=== PATIENT | female | born 1975 | race Caucasian/White ===

== ENCOUNTER 2020-02-14 12:58 | Inpatient (IN) ==
[2020-02-14] MEDS ORDERED: IOPAMIDOL 100 ML BOTTLE IV ONE (12:59)
[2020-02-14] MEDS ORDERED: 0.9 % SODIUM CHLORIDE 2,000 ML IV ONE (13:01)
[2020-02-14] MEDS ORDERED: PROCHLORPERAZINE 10 MG/2 ML VIAL IV ONE (13:01)
[2020-02-14] MEDS ORDERED: PANTOPRAZOLE 40 MG VIAL IV ONE ×3 (13:01→17:40)
[2020-02-14] MEDS ORDERED: PHENobarb/HYOSCY/ATROPINE/SCOP 1 DOSE BOTTLE PO ONE (13:26)
[2020-02-14 13:35] LABS: Basophils # (Auto) 0.07 K/mcL (0.00-0.20); Basophils % (Auto) 0.7 % (0.0-2.0); Eosinophils # (Auto) 0.01 K/mcL (0.00-0.70); Eosinophils % (Auto) 0.1 % (0.0-7.0); Hematocrit 46.6 % (36.0-48.0); Hemoglobin 16.1 g/dL (12.0-15.0); Lymphocytes # (Auto) 1.95 K/mcL (1.50-4.80); Lymphocytes % (Auto) 18.1 % (15.0-49.0); Mean Cell Volume 91.6 fL (80.0-100.0); Mean Corpuscular HGB Conc 34.5 g/dL (31.0-36.0); Mean Platelet Volume 9.1 fL (7.4-10.4); Monocytes # (Auto) 0.88 K/mcL (0.10-0.90); Monocytes % (Auto) 8.2 % (1.0-12.0); Neutrophils % (Auto) 72.9 % (38.0-78.0); Platelet Count 267 K/mcL (140-440); RBC 5.09 M/mcL (4.00-5.20); Red Cell Distribution Width 12.2 % (11.5-14.5); WBC 10.8 K/mcL (4.5-11.0)
[2020-02-14 14:01] LABS: ALT/SGPT 17 U/L (<40); AST/SGOT 19 U/L (<32); Albumin 4.4 gm/dL (3.2-5.2); Albumin/Globulin Ratio 1.4 (1.0-2.3); Alkaline Phosphatase 103 U/L (39-117); Bilirubin,Total 0.6 mg/dL (0.1-1.0); Blood Urea Nitrogen 11 mg/dL (6-20); Calcium 9.3 mg/dL (8.6-10.4); Carbon Dioxide 21 mmol/L (22-30); Chloride 97 mmol/L (96-108); Globulin 3.2 gm/dL (2.2-3.7); Glomerular Filtration Rate 104; Glucose 320 mg/dL (70-105)
--- NOTE | 2020-02-14 14:02 | Emergency Department Note ---
Abdominal Pain HPI General Chief Complaint: Abdominal Pain Stated Complaint: N/v abd pain Time Seen by Provider: 02/14/20 13:01 Source: patient Mode of arrival: ambulatory Limitations: no limitations History of Present Illness HPI Narrative: Narrative: 44-year-old female comes back today for epigastric pain with nausea and vomiting. Denies diarrhea fever shortness of breath. Notes general malaise. Has not been able to hold fluids down. I saw her 2 days ago for the same thing and she was discharged home with medicine to calm her stomach down and antinausea medicine. She states she is not any better. Fingerstick blood sugar here is 311 Related Data Home Medications Medication Instructions Recorded Confirmed venlafaxine [Effexor XR] 150 mg PO QDAY 09/02/19 02/14/20 quetiapine 50 mg tablet 50 mg PO HS 09/30/19 12/31/19 probiotics PO 10/08/19 12/31/19 aspirin 81 mg chewable tablet See Rx Instructions PO .COMPLEX 11/06/19 12/31/19 [id number] See Rx Instructions PO .COMPLEX 11/06/19 12/31/19 50 mg-325 mg-40 mg capsule cholecalciferol (vitamin D3) 25 See Rx Instructions PO .COMPLEX 11/06/19 mcg (1,000 unit) tablet fenofibrate micronized 200 mg See Rx Instructions PO .COMPLEX 11/06/19 12/31/19 capsule ferrous gluconate PO 11/06/19 12/31/19 guar gum PO 11/06/19 12/31/19 ibuprofen 600 mg tablet See Rx Instructions PO .COMPLEX 11/06/19 12/31/19 metoprolol succinate 25 mg See Rx Instructions PO .COMPLEX 11/06/19 12/31/19 tablet,extended release 24 hr polyethylene glycol 3350 17 See Rx Instructions PO .COMPLEX 11/06/19 12/31/19 gram/dose oral powder metformin 500 mg PO BID 02/14/20 02/14/20 omeprazole 20 mg PO QDAY 02/14/20 02/14/20 Previous Rx's Medication Instructions Recorded pioglitazone 15 mg tablet 30 mg PO QDAY 30 Days #60 tab 12/31/19 digoxin 250 mcg (0.25 mg) tablet 250 mcg PO QDAY #30 tab 01/24/20 ondansetron 4 mg PO Q6H PRN #10 tab 02/13/20 Allergies Allergy/AdvReac Type Severity Reaction Status Date / Time morphine AdvReac Nausea Verified 02/14/20 12:59 Review of Systems ROS ROS Narrative: Narrative: All systems ED: reviewed and negative except as stated. PFSH Narrative Patient History Narrative: Narrative: Medical/Surgical/Family History All Active Problems (Updated 02/14/20 @ 14:59 by Joseluis Julio MD) Gastritis (Acute) DKA (diabetic ketoacidoses) (Acute) History of removal of cyst (Chronic) History of arthroscopy of knee (Chronic) Delusions (Chronic) Hallucinations (Chronic) Heartburn (Chronic) Hypertension (Chronic) Learning disability (Chronic) Acute viral syndrome (Chronic) Anxiety (Chronic) Nausea & vomiting (Chronic) Dehydration (Chronic) Hemorrhoid (Chronic) Hyperlipidemia (Chronic) Diarrhea (Chronic) Acute dehydration (Chronic) Tachycardia (Chronic) History of hysterectomy (Chronic 07/26/16) History of cholecystectomy (Chronic) Heart trouble (Chronic) Type 2 diabetes mellitus (Chronic) Depression (Chronic) Arthritis (Chronic) Acid reflux (Chronic) Hyperglycemia due to type 2 diabetes mellitus (Chronic) Headache (Chronic) Fatigue (Chronic) Left thyroid nodule (Chronic) History of tachycardia (Chronic) Influenza A (Chronic) Gastroenteritis (Chronic) UTI (urinary tract infection) (Chronic) Bladder infection (Chronic) Tachycardia (Chronic) Chronic insomnia (Chronic) Diabetes mellitus type 2, uncontrolled, without complications (Chronic) Medical History (Updated 02/14/20 @ 14:59 by Joseluis Julio MD) Acid reflux (Chronic) Arthritis (Chronic) Chronic insomnia (Chronic) Dehydration (Resolved) Delusions (Chronic) Depression (Chronic) Mental Health x1 @ [facility] 1999 Diabetes mellitus type 2, uncontrolled, without complications (Chronic) Diarrhea (Chronic) Gastroenteritis (Resolved) Hallucinations (Chronic) Heart trouble (Chronic) Heartburn (Chronic) Hemorrhoid (Chronic) Hyperlipidemia (Chronic) Hypertension (Chronic) Learning disability (Chronic) PID (acute pelvic inflammatory disease) (Resolved) Tachycardia (Chronic) Type 2 diabetes mellitus (Chronic) UTI (urinary tract infection) (Resolved) Surgical History History of arthroscopy of knee (Chronic) Right History of cholecystectomy (Chronic) History of hysterectomy (Chronic 07/26/16) History of removal of cyst (Chronic) Cyst removed off of right breast Family History Other Alcoholism Social History Smoking Status: Former smoker Alcohol Intake Frequency: does not drink Substance Use: marijuana Exam Narrative Narrative: Dramatic. She is able to sit up from my exam without difficulty or assistance. She is dry heaving in the hallway but here in the room she is not. Normocephalic atraumatic. Conjunctive are clear sclerae white nonicteric. No nasal discharge or congestion. Oropharynx pink and moist. Neck is supple wit hout lymphadenopathy or thyromegaly. Heart is regular rate and rhythm no murmur appreciated. Lungs are clear to auscultation bilaterally without wheezes rales rhonchi or respiratory distress. Abdomen is soft tender in the epigastrium down to the umbilical area. I do not see any CVA tenderness peritoneal signs or guarding. No pedal edema. She is alert oriented able answer questions appropriately General Limitations: no limitations Course Vital Signs Vital signs: Vital Signs Temperature 98.8 F 02/14/20 12:59 Pulse Rate 106 H 02/14/20 12:59 Respiratory Rate 20 02/14/20 12:59 Blood Pressure 165/101 02/14/20 12:59 Pulse Oximetry (%) 98 02/14/20 12:59 Temperature 98.8 F 02/14/20 12:59 Pulse Rate 115 H 02/14/20 15:27 Respiratory Rate 20 02/14/20 12:59 Blood Pressure 146/84 02/14/20 15:27 Pulse Oximetry (%) 100 02/14/20 15:27 [facility] MDM Narrative Medical decision making narrative: Narrative: Concern for worsening gastritis. Ordered laboratory CT scan of the abdomen pelvis and start IV fluids. We will give her some Compazine for the nausea and GI cocktail along with Protonix. She is a diabetic concern for also DKA or worsening status there so further laboratory is ordered. We will see what her blood sugar looks like after rehydration as it is only 311 now We attempted to get the CT scan done but she was too anxious and could not be accomplished-ordered Ativan. CT was done Her anion gap is elevated as was her blood sugar and beta hydroxybutyrate. This looks like mild DKA so we will give her 5 units of insulin. Blood gases ordered I talked with her about coming in the hospital for treatment of her diabetes-she notes that she has not been able to hold any food down for about 3 days now. She is very anxious. I discussed the situation with Dr. Zamorano, our hospitalist. He agreed to admit the patient for further care and evaluation the hospital but recommended that we talk to surgery regarding possible consultation for upper endoscopy for this gastritis. It is noted the patient's vital signs are reasonable, we do not have evidence of coffee-ground emesis and her BUN is normal-that is a significant GI bleed is unlikely. So at that point I discussed the situation with Dr. Cardenas, our general surgeon. He agreed to consult on the patient ABG shows tachypnea with mild respiratory alkalosis compensating for likely metabolic acidosis from DKA-pH is compensated at 7.42 Lab Data Result diagrams: 02/14/20 13:09 02/14/20 13:09 Labs: Lab Results 02/14/20 02/14/20 02/14/20 Range/Units 13:08 13:09 13:09 WBC 10.8 (4.5-11.0) K/mcL RBC 5.09 (4.00-5.20) M/mcL Hgb 16.1 H (12.0-15.0) g/dL Hct 46.6 (36.0-48.0) % MCV 91.6 (80.0-100.0) fL MCH 31.6 (26.0-34.0) pg MCHC 34.5 (31.0-36.0) g/dL RDW 12.2 (11.5-14.5) % Plt Count 267 (140-440) K/mcL MPV 9.1 (7.4-10.4) fL Neut % (Auto) 72.9 (38.0-78.0) % Lymph % (Auto) 18.1 (15.0-49.0) % [place] % (Auto) 8.2 (1.0-12.0) % Eos % (Auto) 0.1 (0.0-7.0) % Baso % (Auto) 0.7 (0.0-2.0) % Lymph # (Auto) 1.95 (1.50-4.80) K/mcL [place] # (Auto) 0.88 (0.10-0.90) K/mcL Eos # (Auto) 0.01 (0.00-0.70) K/mcL Baso # (Auto) 0.07 (0.00-0.20) K/mcL Absolute Neutrophils 7.85 (1.80-8.00) K/mcL VBG Lactic Acid (0.5-2.0) mmol/L Sodium 140 (133-145) mmol/L Potassium 3.6 (3.3-5.1) mmol/L Chloride 97 (96-108) mmol/L Carbon Dioxide 21 L (22-30) mmol/L Anion Gap 22.0 H (8.0-16.0) BUN 11 (6-20) mg/dL Creatinine 0.7 (0.6-1.1) mg/dL GFR Calculation 104 Glucose 320 H (70-105) mg/dL Calcium 9.3 (8.6-10.4) mg/dL Total Bilirubin 0.6 (0.1-1.0) mg/dL AST 19 (<32) U/L ALT 17 (<40) U/L Alkaline Phosphatase 103 (39-117) U/L C-Reactive Protein 0.50 (0.03-0.80) mg/dL Total Protein 7.6 (5.9-8.4) gm/dL Albumin 4.4 (3.2-5.2) gm/dL Globulin 3.2 (2.2-3.7) gm/dL Albumin/Globulin Ratio 1.4 (1.0-2.3) Lipase 21 (7-60) U/L Beta-Hydroxybutyrate 3.90 H (<0.27) mmol/L Urine Color Urine Appearance (Clear) Urine pH (5.0-9.0) Ur Specific [place] (1.000-1.035) Urine Protein (Negative) mg/dL Urine Glucose (UA) (Negative) mg/dL Urine Ketones (Negative) mg/dL Urine Occult Blood (Negative) mg/dL Urine Nitrate (Negative) Urine Bilirubin (Negative) mg/dL Urine Urobilinogen mg/dL Ur Leukocyte Esterase (Negative) /ug Urine RBC (0-3) /hpf Urine WBC (0-4) /hpf Ur Squamous Epith Cells (0-4) /hpf Urine Bacteria (0) /hpf Other Casts (None) /lph Urine Mucus (None) /hpf Ur Culture Indicated? 02/14/20 02/14/20 Range/Units 13:09 13:42 WBC (4.5-11.0) K/mcL RBC (4.00-5.20) M/mcL Hgb (12.0-15.0) g/dL Hct (36.0-48.0) % MCV (80.0-100.0) fL MCH (26.0-34.0) pg MCHC (31.0-36.0) g/dL RDW (11.5-14.5) % Plt Count (140-440) K/mcL MPV (7.4-10.4) fL Neut % (Auto) (38.0-78.0) % Lymph % (Auto) (15.0-49.0) % Love % (Auto) (1.0-12.0) % Eos % (Auto) (0.0-7.0) % Baso % (Auto) (0.0-2.0) % Lymph # (Auto) (1.50-4.80) K/mcL [place] # (Auto) (0.10-0.90) K/mcL Eos # (Auto) (0.00-0.70) K/mcL Baso # (Auto) (0.00-0.20) K/mcL Absolute Neutrophils (1.80-8.00) K/mcL VBG Lactic Acid 1.5 (0.5-2.0) mmol/L Sodium (133-145) mmol/L Potassium (3.3-5.1) mmol/L Chloride (96-108) mmol/L Carbon Dioxide (22-30) mmol/L Anion Gap (8.0-16.0) BUN (6-20) mg/dL Creatinine (0.6-1.1) mg/dL GFR Calculation Glucose (70-105) mg/dL Calcium (8.6-10.4) mg/dL Total Bilirubin (0.1-1.0) mg/dL AST (<32) U/L ALT (<40) U/L Alkaline Phosphatase (39-117) U/L C-Reactive Protein (0.03-0.80) mg/dL Total Protein (5.9-8.4) gm/dL Albumin (3.2-5.2) gm/dL Globulin (2.2-3.7) gm/dL Albumin/Globulin Ratio (1.0-2.3) Lipase (7-60) U/L Beta-Hydroxybutyrate (<0.27) mmol/L Urine Color Yellow Urine Appearance Clear (Clear) Urine pH 6.0 (5.0-9.0) Ur Specific [place] 1.036 H (1.000-1.035) Urine Protein >=500 A (Negative) mg/dL Urine Glucose (UA) >=500 A (Negative) mg/dL Urine Ketones 80 A (Negative) mg/dL Urine Occult Blood Negative (Negative) mg/dL Urine Nitrate Negative (Negative) Urine Bilirubin Negative (Negative) mg/dL Urine Urobilinogen Negative mg/dL Ur Leukocyte Esterase Negative (Negative) /ug Urine RBC 1 (0-3) /hpf Urine WBC 4 (0-4) /hpf Ur Squamous Epith Cells 5 H (0-4) /hpf Urine Bacteria Few A (0) /hpf Other Casts Few A (None) /lph Urine Mucus Mod A (None) /hpf Ur Culture Indicated? No Discharge Plan Patient/Caregiver Discharge Instructions Pt seen by PUBLIC RELATIONS COUNSELOR/PA only: No Clinical Impression: Gastritis Qualifiers: Gastritis type: unspecified gastritis Chronicity: acute Gastritis bleeding: presence of bleeding unspecified Qualified Code(s): K29.00 - Acute gastritis without bleeding DKA (diabetic ketoacidoses) Qualifiers: Diabetes mellitus type: type 2 Diabetes mellitus complication detail: without coma Qualified Code(s): E11.10 - Type 2 diabetes mellitus with ketoacidosis without coma Patient Disposition: Xfer As Inpt ([facility]) Condition: Fair Follow up with: Juan F Pinon MD [Primary Care Provider] - Prescriptions: No Action digoxin 250 mcg (0.25 mg) tablet 250 mcg PO QDAY Qty: 30 RF: 2 probiotics PO RF: 0 quetiapine 50 mg tablet 50 mg PO HS RF: 0 [id number]-[id number]-hmlr [Zebutal] 50-325-40 mg capsule See Rx Instructions PO .COMPLEX RF: 0 cholecalciferol (vitamin D3) 25 mcg (1,000 unit) tablet See Rx Instructions PO .COMPLEX RF: 0 fenofibrate micronized 200 mg capsule See Rx Instructions PO .COMPLEX RF: 0 polyethylene glycol 3350 [Miralax] 17 gram/dose powder See Rx Instructions PO .COMPLEX RF: 0 metoprolol succinate 25 mg tablet extended release 24 hr 25 mg PO BID RF: 0 ibuprofen 600 mg tablet See Rx Instructions PO .COMPLEX RF: 0 ferrous gluconate PO RF: 0 guar gum PO RF: 0 aspirin 81 mg tablet,chewable See Rx Instructions PO .COMPLEX RF: 0 pioglitazone 15 mg tablet 30 mg PO QDAY 30 Days Qty: 60 RF: 2 venlafaxine [Effexor XR] 75 mg Capsule,Extended Release 24hr 150 mg PO QDAY RF: 0 ondansetron 4 mg tablet,disintegrating 4 mg PO Q6H PRN (Reason: nausea and vomiting) Qty: 10 RF: 0 metformin 500 mg tablet extended release 24 hr 500 mg PO BID RF: 0 omeprazole 40 mg capsule,delayed release(DR/EC) 20 mg PO QDAY RF: 0
[2020-02-14] MEDS ORDERED: LORazepam 2 MG/ML VIAL IV ONE (14:15)
[2020-02-14 14:35] LABS: Appearance,Urine CLEAR (Clear); Bacteria,Urine FEW /hpf (0); Bilirubin,Urine Negative (Negative); Color,Urine YELLOW; Culture Indicated,Urine No; Glucose,Urine (UA) >=500 mg/dL (Negative); Ketones,Urine 80 mg/dL (Negative); Leukocyte Esterase,Urine Negative /ug (Negative); Mucus,Urine MOD /hpf; Nitrate,Urine Negative (Negative); Other Casts,Urine FEW /lph; Protein,Urine >=500 mg/dL (Negative); Specific Gravity,Urine 1.036 (1.000-1.035); Urine Blood Negative (Negative); Urine RBC 1 /hpf (0-3); Urine Squamous Epithelial Cell 5 /hpf (0-4); Urine WBC 4 /hpf (0-4); Urobilinogen,Urine Negative
[2020-02-14] MEDS ORDERED: INSULIN REGULAR, HUMAN 1 UNIT/0.01 ML UNIT IV ONE (14:57)
--- NOTE | 2020-02-14 15:07 | Cat Scan Report ---
History: Epigastric pain with nausea and vomiting TECHNIQUE: The patient was imaged following intravenous but no oral contrast scanning during the portal venous phase from the diaphragm through the symphysis pubis. Sagittal and coronal reformats were created. The radiation exposure was limited using dose reduction technology. FINDINGS: The liver is mildly enlarged. There is moderate generalized fatty infiltration. There is no evidence of a liver mass. The gallbladder has been removed. Intrahepatic and extrahepatic bile ducts are normal in caliber. There is no mass or inflammation in the pancreas. The spleen is normal in size and homogeneous. The adrenals are normal and symmetric. There are four tiny nonobstructing calyceal stones in both kidneys. They are all less than 2 mm in size. Renal parenchyma is normal in thickness and there is no mass, inflammation or hydronephrosis in either kidney. A 5 mm cyst is seen in the upper pole of the right kidney. The ureters are decompressed. There are no stones in the urinary bladder. The uterus has been removed. The ovaries are small. There are couple noninflamed diverticula near the splenic flexure the colon. There is no evidence of diverticulitis. The appendix is noninflamed. Small bowel is normal. No adenopathy or ascites are present. The patient is partial ankylosis across the SI joints bilaterally. There is no associated bone erosion. IMPRESSION: Hepatomegaly with fatty infiltration of the liver Bilateral tiny nonobstructing kidney stones Partial ankylosis of the SI joints. This could be due to chronic sacroiliitis. Dr. Julio was called with the results Interpreted and Authenticated by: Semaj Eason 02/14/20
[2020-02-14] MEDS ORDERED: LORazepam 2 MG/ML VIAL IV PRN (15:25)
--- NOTE | 2020-02-14 15:28 | Internal Med History&Physical ---
HPI History of Present Illness Patient information: Note initiated : 02/14/20 at 3:28 pm Service Date, if different from initiated Date: [] Patient: Susanne Jennings a 44 y/o F admitted on for N/v abd pain. Chief Complaint: Nausea vomiting History of present illness: Ms. Jennings is a 44 year old F with a history of DM type II/acid peptic disorder/anxiety and history of marijuana use who lives with her son and boyfriend and presents to the ER the second time with worsening nausea, vomiting, dehydration and inability take anything by mouth over the last 3 days. Patient endorses to frequent vomiting with retching leading to upper abdominal pain. Symptoms exacerbated by attempts to eat. She denies associated fever, dysphagia but endorses to sick contact - son with Covid symptoms. During previous ER visit she was treated on crystalloid/antiemetics and discharged however she continues to experience worsening symptoms. She denies fever, diarrhea but endorses to bloody stool from known hemorrhoids. Endorses taking marijuana and alcohol on a frequent basis. She says that she has been trying to quit smoking marijuana as it causes dyspnea. During today's evaluation work-up was consistent with hyper glycemia/anion gap acidosis/elevated serum ketones consistent with DKA. Patient was started on insulin drip/crystalloids and subsequently hospitalist service was consulted. At the time of my evaluation patient is fairly anxious. She was able to answer most of the question endorse history as above. She endorses to recurrent symptoms of GERD and acid reflux for which she takes PPIs. She has not been evaluated by GI in the past. Review of systems 10 point review system was performed and is negative except for ones discussed above PFSH PFSH All Active Problems (Updated 02/14/20 @ 14:59 by Joseluis Julio MD) Gastritis (Acute) DKA (diabetic ketoacidoses) (Acute) History of removal of cyst (Chronic) History of arthroscopy of knee (Chronic) Delusions (Chronic) Hallucinations (Chronic) Heartburn (Chronic) Hypertension (Chronic) Learning disability (Chronic) Acute viral syndrome (Chronic) Anxiety (Chronic) Nausea & vomiting (Chronic) Dehydration (Chronic) Hemorrhoid (Chronic) Hyperlipidemia (Chronic) Diarrhea (Chronic) Acute dehydration (Chronic) Tachycardia (Chronic) History of hysterectomy (Chronic 07/26/16) History of cholecystectomy (Chronic) Heart trouble (Chronic) Type 2 diabetes mellitus (Chronic) Depression (Chronic) Arthritis (Chronic) Acid reflux (Chronic) Hyperglycemia due to type 2 diabetes mellitus (Chronic) Headache (Chronic) Fatigue (Chronic) Left thyroid nodule (Chronic) History of tachycardia (Chronic) Influenza A (Chronic) Gastroenteritis (Chronic) UTI (urinary tract infection) (Chronic) Bladder infection (Chronic) Tachycardia (Chronic) Chronic insomnia (Chronic) Diabetes mellitus type 2, uncontrolled, without complications (Chronic) Medical History (Updated 02/14/20 @ 14:59 by Joseluis Julio MD) Acid reflux (Chronic) Arthritis (Chronic) Chronic insomnia (Chronic) Dehydration (Resolved) Delusions (Chronic) Depression (Chronic) IP Mental Health x1 @ [facility] 1999 Diabetes mellitus type 2, uncontrolled, without complications (Chronic) Diarrhea (Chronic) Gastroenteritis (Resolved) Hallucinations (Chronic) Heart trouble (Chronic) Heartburn (Chronic) Hemorrhoid (Chronic) Hyperlipidemia (Chronic) Hypertension (Chronic) Learning disability (Chronic) PID (acute pelvic inflammatory disease) (Resolved) Tachycardia (Chronic) Type 2 diabetes mellitus (Chronic) UTI (urinary tract infection) (Resolved) Surgical History History of arthroscopy of knee (Chronic) Right History of cholecystectomy (Chronic) History of hysterectomy (Chronic 07/26/16) History of removal of cyst (Chronic) Cyst removed off of right breast Family History Other Alcoholism Social History household members: family housing: apartment marital status: single occupational status: employed and disabled occupation: [employer] smoking status: Former smoker pack-years: 28 smoking status start date: 10/27/86 smoking status stop date: 02/13/15 alcohol intake frequency: does not drink substance use type: marijuana MEDS/ALLERGIES Home Medications and Allergies Home Medications Medication Instructions Recorded Confirmed Type venlafaxine [Effexor XR] 150 mg PO QDAY 09/02/19 02/14/20 History quetiapine 50 mg tablet 50 mg PO HS 09/30/19 02/14/20 History probiotics 1 tab PO DAILY 10/08/19 02/14/20 History cholecalciferol (vitamin D3) 25 See Rx Instructions PO .COMPLEX 11/06/19 02/14/20 History mcg (1,000 unit) tablet metoprolol succinate 25 mg 25 mg PO BID 11/06/19 02/14/20 History tablet,extended release 24 hr pioglitazone 15 mg tablet 30 mg PO QDAY 30 Days #60 tab 12/31/19 02/14/20 Rx digoxin 250 mcg (0.25 mg) tablet 250 mcg PO QDAY #30 tab 01/24/20 02/14/20 Rx ondansetron 4 mg PO Q6H PRN #10 tab 02/13/20 02/14/20 Rx metformin 1,000 mg PO HS 02/14/20 02/14/20 History metformin 500 mg PO DAILY 02/14/20 02/14/20 History omeprazole 20 mg PO QDAY 02/14/20 02/14/20 History Allergies Allergy/AdvReac Type Severity Reaction Status Date / Time morphine AdvReac Nausea Verified 02/14/20 12:59 EXAM Constitutional Vitals: Temp Pulse Resp BP Pulse Ox 98.8 F 103 H 20 142/83 99 02/14/20 12:59 02/14/20 15:19 02/14/20 12:59 02/14/20 15:19 02/14/20 15:19 Very anxious Head normocephalic Dry mucous membranes No ear nose discharge Eye movement symmetrical Neck supple no lymphadenopathy S1-S2 occasionally irregular Nonlabored breathing Nondistended nontender abdomen Lower extremity no cyanosis clubbing or joint swelling Skin no suspicious lesion Psych anxious but no hallucination Neuro normal higher function GCS 15 DATA Data Completed and Pending Labs: Labs from last 24 hours 02/14/20 02/14/20 02/14/20 13:42 13:09 13:09 WBC RBC Hgb Hct MCV MCH MCHC RDW Plt Count MPV Neut % (Auto) Lymph % (Auto) [place] % (Auto) Eos % (Auto) Baso % (Auto) Lymph # (Auto) [place] # (Auto) Eos # (Auto) Baso # (Auto) Absolute Neutrophils VBG Lactic Acid 1.5 Sodium 140 Potassium 3.6 Chloride 97 Carbon Dioxide 21 L Anion Gap 22.0 H BUN 11 Creatinine 0.7 GFR Calculation 104 Glucose 320 H Calcium 9.3 Total Bilirubin 0.6 AST 19 ALT 17 Alkaline Phosphatase 103 C-Reactive Protein 0.50 Total Protein 7.6 Albumin 4.4 Globulin 3.2 Albumin/Globulin Ratio 1.4 Lipase 21 Beta-Hydroxybutyrate Urine Color Yellow Urine Appearance Clear Urine pH 6.0 Ur Specific [place] 1.036 H Urine Protein >=500 A Urine Glucose (UA) >=500 A Urine Ketones 80 A Urine Occult Blood Negative Urine Nitrate Negative Urine Bilirubin Negative Urine Urobilinogen Negative Ur Leukocyte Esterase Negative Urine RBC 1 Urine WBC 4 Ur Squamous Epith Cells 5 H Urine Bacteria Few A Other Casts Few A Urine Mucus Mod A Ur Culture Indicated? No 02/14/20 02/14/20 13:09 13:08 WBC 10.8 RBC 5.09 Hgb 16.1 H Hct 46.6 MCV 91.6 MCH 31.6 MCHC 34.5 RDW 12.2 Plt Count 267 MPV 9.1 Neut % (Auto) 72.9 Lymph % (Auto) 18.1 [place] % (Auto) 8.2 Eos % (Auto) 0.1 Baso % (Auto) 0.7 Lymph # (Auto) 1.95 [place] # (Auto) 0.88 Eos # (Auto) 0.01 Baso # (Auto) 0.07 Absolute Neutrophils 7.85 VBG Lactic Acid Sodium Potassium Chloride Carbon Dioxide Anion Gap BUN Creatinine GFR Calculation Glucose Calcium Total Bilirubin AST ALT Alkaline Phosphatase C-Reactive Protein Total Protein Albumin Globulin Albumin/Globulin Ratio Lipase Beta-Hydroxybutyrate 3.90 H Urine Color Urine Appearance Urine pH Ur Specific [place] Urine Protein Urine Glucose (UA) Urine Ketones Urine Occult Blood Urine Nitrate Urine Bilirubin Urine Urobilinogen Ur Leukocyte Esterase Urine RBC Urine WBC Ur Squamous Epith Cells Urine Bacteria Other Casts Urine Mucus Ur Culture Indicated? A/P Narrative A/P Narrative: * DKA-continue management per guidelines. Crystalloid/insulin drip/serial electrolytes. Likely precipitant severe nausea vomiting and unable to take regular medications * Nausea Vomiting with acute gastroenteritis. Start PPI/supportive management/crystalloids and bowel rest. GI consult for upper endoscopy. * Volume depletion continue aggressive crystalloids. * Hypokalemia start oral and IV replacement * Low phosphorus start p.o. and IV replacement * Low magnesium start IV replacement * Anxiety disorder/panic disorder continue venlafaxine/quetiapine * Narrow complex tachycardia longstanding patient has been on metoprolol/digoxin * Hyperlipidemia on fenofibrate at home * Prophylaxis heparin Plan * Inpatient ICU admission for DKA * DKA management protocol, insulin drip, crystalloids, electrolyte monitoring * Aggressive electrolyte replacement * GI consult for upper endoscopy * PPI Time Spent With Patient Time: Critical care time spent on management of DKA in excess of 35 minutes
[2020-02-14] MEDS ORDERED: 0.9 % SODIUM CHLORIDE 1,000 ML IV ONE (16:22)
[2020-02-14] MEDS ORDERED: POLYETHYLENE GLYCOL 3350 17 GM PACKET PO PRN (17:40)
[2020-02-14] MEDS ORDERED: MELATONIN 3 MG TABLET PO PRN (17:40)
[2020-02-14] MEDS ORDERED: ONDANSETRON 4 MG ODT TABLET SL PRN (17:40)
[2020-02-14] MEDS ORDERED: BISACODYL 10 MG SUPP.RECT PR PRN (17:40)
[2020-02-14] MEDS ORDERED: INSULIN REGULAR, HUMAN 50 UNIT in 0.9 % SODIUM CHLORIDE 99.5 ML IV SCH (17:40)
[2020-02-14] MEDS ORDERED: ACETAMINOPHEN 650 MG/65 ML BAG IV PRN (17:40)
[2020-02-14] MEDS ORDERED: ACETAMINOPHEN 325 MG TABLET PO PRN (17:40)
[2020-02-14] MEDS ORDERED: POTASSIUM CHLORIDE 40 MEQ in DEXTROSE 5% IN WATER 500 ML IV PRN (17:40)
[2020-02-14] MEDS: 0.9 % SODIUM CHLORIDE 1,000 ML IV SCH (18:38)
[2020-02-14 19:17] LABS: ABG Methemoglobin 0.1 % (0.4-1.5); Total Hemoglobin 13.4 gm/Dl (13.5-16.5); VBG Base Excess -4 (-2-3); VBG Oxygen Saturation 85.5 %; VBG PCO2 30.1 mmHg; VBG PH 7.42 U; VBG PO2 57.7 mmHg; VBG Total CO2 19.9 mmol/L
[2020-02-14] MEDS: DEXTROSE 5%-1/2NS 1,000 ML IV SCH (19:26)
[2020-02-14 19:37] LABS: ALT/SGPT 13 U/L (<40); AST/SGOT 14 U/L (<32); Albumin 3.6 gm/dL (3.2-5.2); Albumin/Globulin Ratio 1.5 (1.0-2.3); Alkaline Phosphatase 79 U/L (39-117); Bilirubin,Direct < 0.2 mg/dL (<0.3); Bilirubin,Total 0.4 mg/dL (0.1-1.0); Blood Urea Nitrogen 8 mg/dL (6-20); Calcium 7.8 mg/dL (8.6-10.4); Carbon Dioxide 20 mmol/L (22-30); Chloride 105 mmol/L (96-108); Globulin 2.4 gm/dL (2.2-3.7); Glomerular Filtration Rate 109; Glucose 220 mg/dL (70-105); Lactate Dehydrogenase 150 U/L (135-225); Phosphorous 1.6 mg/dL (2.5-4.5); Triglycerides 209 mg/dL (<150)
[2020-02-14] MEDS: SENNOSIDES/DOCUSATE SODIUM 1 TAB TABLET PO SCH (19:47)
[2020-02-14] MEDS: DOCUSATE SODIUM 100 MG CAPSULE PO SCH (19:47)
[2020-02-14] MEDS ORDERED: INSULIN REGULAR, HUMAN 1 UNIT/0.01 ML UNIT ONE (20:38)
[2020-02-14] MEDS: POTASSIUM CHLORIDE 20 MEQ PACKET PO PRN (20:59)
[2020-02-14] MEDS: HEPARIN 5,000 UNIT/ML VIAL SQ SCH (21:04)
--- NOTE | 2020-02-14 21:52 | General Surgery Progress Note ---
SUBJECTIVE Subjective Patient information: Note initiated : 02/14/20 at 9:51 pm Service Date, if different from initiated Date: [] Patient: Susanne Jennings 44 y/o F admitted on 02/14/20 for N/v abd pain. Chief Complaint: General Surgery Aware of pt - Full consult tomorrow AM Now with minimal nausea Anion Gap closed Insuling gtt ongoing Ilya Narayanan MD Constitutional Vitals: Vital Signs Temp Pulse Resp BP Pulse Ox 36.5 C 95 H 18 169/91 99 02/14/20 20:01 02/14/20 18:02 02/14/20 20:01 02/14/20 20:01 02/14/20 20:01 Period Temp Pulse Resp BP Sys/Flores Pulse Ox Last 24 Hr 36.5 C-37.1 C 89-116 18-23 128-169/79-122 96-100 Intake and Output 02/14/20 02/14/20 02/14/20 05:59 13:59 21:59 Intake Total 1999 Balance 1999 Weight 83.007 kg 80.513 kg Patient Weight 02/15/20 05:59 Weight 80.513 kg Intake & Output: Intake & Output 02/14/20 02/14/20 02/14/20 05:59 13:59 21:59 Intake Total 1999 Balance 1999 Weight 83.007 kg 80.513 kg Intake: IV 2000 Sodium Chloride 0.9% 2,000 ml @ 2000 Wide Open IV BOLUS ONE Rx#: [id number] A/P Time Spent With Patient Time: Total time spent is greater than 50% in coordination of care (as documented) at patient's floor/unit and/or counseling patient:
[2020-02-14 22:12] LABS: ABG Methemoglobin 0.3 % (0.4-1.5); VBG Base Excess -3 (-2-3); VBG HCO3 21.6 mmol/L; VBG PCO2 35.9 mmHg; VBG PO2 61.1 mmHg; VBG Total CO2 22.7 mmol/L
[2020-02-14] MEDS: ONDANSETRON 4 MG/2 ML VIAL IV PRN (22:14)
[2020-02-14] MEDS: 0.9 % SODIUM CHLORIDE 10 ML SYRINGE IV SCH (22:14)
[2020-02-15] MEDS: 0.9 % SODIUM CHLORIDE 1,000 ML IV SCH (01:29)
[2020-02-15] MEDS: MAGNESIUM SULFATE 2 GM/50 ML BAG IV PRN (03:37)
[2020-02-15] MEDS: ONDANSETRON 4 MG/2 ML VIAL IV PRN ×3 (03:46→15:44)
[2020-02-15] MEDS: 0.9 % SODIUM CHLORIDE 10 ML SYRINGE IV SCH ×3 (04:18→22:06)
[2020-02-15 06:48] LABS: Basophils # (Auto) 0.07 K/mcL (0.00-0.20); Basophils % (Auto) 0.9 % (0.0-2.0); Eosinophils # (Auto) 0.08 K/mcL (0.00-0.70); Eosinophils % (Auto) 1.1 % (0.0-7.0); Hematocrit 38.1 % (36.0-48.0); Hemoglobin 12.8 g/dL (12.0-15.0); Lymphocytes # (Auto) 2.08 K/mcL (1.50-4.80); Lymphocytes % (Auto) 27.6 % (15.0-49.0); Mean Cell Volume 93.6 fL (80.0-100.0); Mean Corpuscular HGB Conc 33.6 g/dL (31.0-36.0); Mean Platelet Volume 9.4 fL (7.4-10.4); Monocytes # (Auto) 0.92 K/mcL (0.10-0.90); Monocytes % (Auto) 12.2 % (1.0-12.0); Neutrophils % (Auto) 58.2 % (38.0-78.0); Platelet Count 211 K/mcL (140-440); RBC 4.07 M/mcL (4.00-5.20); Red Cell Distribution Width 12.2 % (11.5-14.5); WBC 7.5 K/mcL (4.5-11.0)
[2020-02-15 07:08] LABS: ALT/SGPT 8 U/L (<40); AST/SGOT 16 U/L (<32); Albumin 3.3 gm/dL (3.2-5.2); Albumin/Globulin Ratio 1.4 (1.0-2.3); Alkaline Phosphatase 78 U/L (39-117); Bilirubin,Direct < 0.2 mg/dL (<0.3); Bilirubin,Total 0.6 mg/dL (0.1-1.0); Blood Urea Nitrogen 4 mg/dL (6-20); Calcium 7.7 mg/dL (8.6-10.4); Carbon Dioxide 22 mmol/L (22-30); Chloride 102 mmol/L (96-108); Globulin 2.3 gm/dL (2.2-3.7); Glomerular Filtration Rate 116; Glucose 219 mg/dL (70-105); Lactate Dehydrogenase 189 U/L (135-225); Phosphorous 1.4 mg/dL (2.5-4.5); Triglycerides 185 mg/dL (<150); Uric Acid 3.2 mg/dL (2.5-8.0)
[2020-02-15] MEDS: PANTOPRAZOLE 40 MG VIAL IV SCH (07:09)
[2020-02-15] MEDS: POTASSIUM CHLORIDE 20 MEQ PACKET PO PRN (07:21)
[2020-02-15] MEDS: DOCUSATE SODIUM 100 MG CAPSULE PO SCH ×2 (08:31→20:30)
[2020-02-15] MEDS: DEXTROSE 5%-1/2NS 1,000 ML IV SCH ×2 (09:10→20:29)
[2020-02-15] MEDS ORDERED: NEUTRA PHOS 1 PACKET PO PRN (09:14)
--- NOTE | 2020-02-15 09:15 | Internal Med Progress Note ---
SUBJECTIVE Subjective Patient information: Note initiated : 02/15/20 at 9:09 am Service Date, if different from initiated Date: [] Patient: Susanne Jennings a 44 y/o F admitted on 02/14/20 for N/v abd pain. Chief Complaint: [] Ms. Jennings is a 44 year old F with a history of DM type II/acid peptic disorder/anxiety and history of marijuana use who lives with her son and boyfriend and presents to the ER the second time with worsening nausea, vomiting, dehydration and inability take anything by mouth over the last 3 days. Patient endorses to frequent vomiting with retching leading to upper abdominal pain. Symptoms exacerbated by attempts to eat. She denies associated fever, dysphagia but endorses to sick contact - son with Covid symptoms. During previous ER visit she was treated on crystalloid/antiemetics and discharged however she continues to experience worsening symptoms. She denies fever, diarrhea but endorses to bloody stool from known hemorrhoids. Endorses taking marijuana and alcohol on a frequent basis. She says that she has been trying to quit smoking marijuana as it causes dyspnea. During today's evaluation work-up was consistent with hyper glycemia/anion gap acidosis/elevated serum ketones consistent with DKA. Patient was started on insulin drip/crystalloids and subsequently hospitalist service was consulted. At the time of my evaluation patient is fairly anxious. She was able to answer most of the question endorse history as above. She endorses to recurrent symptoms of GERD and acid reflux for which she takes PPIs. She has not been evaluated by GI in the past. 1/2-patient clinically improving with DKA management protocol. Currently insulin drip at 1.5 currently being weaned. Anion gap improved, bicarbonate normalized, pH stable, improved volume depletion. Will start on oral diet, transition to oral antidiabetics. Surgery consulted. Patient will undergo upper endoscopy for evaluation of persistent nausea vomiting in the setting of acid peptic disorder. This morning patient feels a lot better. Very happy with care. No overnight fever chills.Potassium 3.2 on replacement, phosphorus 1.4. Constitutional Vitals: Vital Signs Temp Pulse Resp BP Pulse Ox 98.4 F 79 10 L 146/93 98 02/15/20 08:01 02/15/20 08:01 02/15/20 08:01 02/15/20 08:01 02/15/20 08:01 Period Temp Pulse Resp BP Sys/Flores Pulse Ox Last 24 Hr 97.7 F-99 F 79-116 10-23 128-169/79-122 96-100 Intake and Output 02/14/20 02/15/20 02/15/20 21:59 05:59 13:59 Intake Total 1999 1050 25 Output Total 1025 Balance 1999 25 25 Weight 80.513 kg Alert oriented No telemetry events No anxiety Improved nausea Intake & Output: Intake & Output 02/14/20 02/15/20 02/15/20 21:59 05:59 13:59 Intake Total 1999 1050 25 Output Total 1025 Balance 1999 Weight 80.513 kg Intake: IV 1999 1050 25 Sodium Chloride 0.9% 1,000 ml @ 1999 1000 Wide Open IV BOLUS ONE Rx#: [id number] HumuLIN R 50 UNIT In Sodium 25 Chloride 0.9% 99.5 ml @ As Directed IV DUR LOURDES Rx#: [id number] Output: Void Amount 1025 OBJ DATA Labs CBC & Chem 7: 02/15/20 04:21 02/15/20 04:21 Labs: Abnormal Lab Results 02/15/20 02/15/20 02/14/20 04:21 04:21 21:49 Hgb [place] % (Auto) 12.2 H [place] # (Auto) 0.92 H ABG Methemoglobin 0.3 L VBG Base Excess -3 L Carboxyhemoglobin 3.1 H Total Hemoglobin 13.0 L Potassium 3.2 L Carbon Dioxide Anion Gap BUN 4 L Creatinine 0.5 L Glucose 219 H Calcium 7.7 L Phosphorus 1.4 L Magnesium Total Protein 5.6 L Triglycerides 185 H Beta-Hydroxybutyrate Ur Specific [place] Urine Protein Urine Glucose (UA) Urine Ketones Ur Squamous Epith Cells Urine Bacteria Other Casts Urine Mucus 02/14/20 02/14/20 02/14/20 18:40 18:40 13:42 Hgb [place] % (Auto) [place] # (Auto) ABG Methemoglobin 0.1 L VBG Base Excess -4 L Carboxyhemoglobin 5.6 H Total Hemoglobin 13.4 L Potassium 3.2 L Carbon Dioxide 20 L Anion Gap BUN Creatinine Glucose 220 H Calcium 7.8 L Phosphorus 1.6 L Magnesium 1.5 L Total Protein Triglycerides 209 H Beta-Hydroxybutyrate Ur Specific [place] 1.036 H Urine Protein >=500 A Urine Glucose (UA) >=500 A Urine Ketones 80 A Ur Squamous Epith Cells 5 H Urine Bacteria Few A Other Casts Few A Urine Mucus Mod A 02/14/20 02/14/20 02/14/20 13:09 13:09 13:08 Hgb 16.1 H [place] % (Auto) [place] # (Auto) ABG Methemoglobin VBG Base Excess Carboxyhemoglobin Total Hemoglobin Potassium Carbon Dioxide 21 L Anion Gap 22.0 H BUN Creatinine Glucose 320 H Calcium Phosphorus Magnesium Total Protein Triglycerides Beta-Hydroxybutyrate 3.90 H Ur Specific [place] Urine Protein Urine Glucose (UA) Urine Ketones Ur Squamous Epith Cells Urine Bacteria Other Casts Urine Mucus Meds: Medications Acetaminophen (Tylenol) 650 mg PO Q4-6HP PRN; Protocol PRN Reason: Per Pain Protocol/Fever > 101 Bisacodyl (Dulcolax) 10 mg CO Q2-3DAYS PRN PRN Reason: Constipation Diagnostic Test (Pha) (Accu-Chek) 1 each FS Q1 [facility] Last Admin: 02/15/20 08:05 Dose: 1 each Documented by: Docusate Sodium (Colace) 100 mg PO BID [facility] Last Admin: 02/15/20 08:31 Dose: Not Given Documented by: Heparin Sodium (Porcine) (Heparin) 5,000 unit SQ Q12 [facility] Last Admin: 02/14/20 21:04 Dose: 5,000 unit Documented by: Dextrose/Sodium Chloride (Dextrose 5%-1/2ns Iv Solution) 1,000 mls @ 75 mls/hr IV .[id number] [facility] Last Admin: 02/14/20 19:26 Dose: 75 mls/hr Documented by: Potassium Chloride 40 meq/ (Dextrose) 520 mls @ 130 mls/hr IV UD PRN PRN Reason: K+ = or < 3.5 Acetaminophen (Ofirmev) 650 mg in 65 mls @ 130 mls/hr IV Q6HP PRN; Protocol PRN Reason: Per Pain Protocol/Fever > 101 Magnesium Sulfate (Magnesium Sulfate) 2 gm in 50 mls @ 50 mls/hr IV UD PRN PRN Reason: MG = or < 1.7 Last Infusion: 02/15/20 04:44 Dose: Infused Documented by: Insulin Human Regular 50 unit/ (Sodium Chloride) 100 mls @ 0 mls/hr IV DUR [facility]; Protocol Last Titration: 02/15/20 08:05 Dose: 2 unit/hr, 4 mls/hr Documented by: Iron Carb/Multivit/Fergus/Folic Acid (Multivitamin W/Minerals) 1 tab PO DAILY LOURDES Lorazepam (Ativan) 0.5 mg IV Q2-4HP PRN PRN Reason: ANXIETY/SEDATION Melatonin (Melatonin 3mg Tablet) 3 mg PO HSP PRN PRN Reason: Insomnia Ondansetron HCl (Zofran Odt) 4 mg SL Q4-6HP PRN; Protocol PRN Reason: Nausea And Vomiting Ondansetron HCl (Zofran) 4 mg IV Q4-6HP PRN; Protocol PRN Reason: Nausea And Vomiting Last Admin: 02/15/20 08:05 Dose: 4 mg Documented by: [facility]oprazole [facility]ix) [facility] Admin: 02/15/20 07:09 Dose: 40 mg Documented by: Polyethylene Glycol (Miralax) 17 gm PO DAILYP PRN PRN Reason: Constipation Potassium Chloride (Klor-Con) 40 meq PO DAILYP PRN PRN Reason: K+ < 3.5 Last Admin: 02/15/20 07:21 Dose: 40 meq Documented by: Senna/Docusate Sodium (Senna Plus Tablet) 1 tab PO HS [facility] Last Admin: 02/14/20 19:47 Dose: Not Given Documented by: Sodium Chloride (Saline Flush) 10 ml IV Q8 [facility] Last Admin: 02/15/20 04:18 Dose: Not Given Documented by: ABG Interpretation ABG results: 02/14/20 02/14/20 18:40 21:49 ABG Methemoglobin 0.1 L 0.3 L VBG pH 7.42 7.40 VBG pCO2 30.1 35.9 VBG pO2 57.7 61.1 VBG HCO3 19.0 21.6 VBG Total CO2 19.9 22.7 VBG O2 Saturation 85.5 88.0 VBG Base Excess -4 L -3 L A/P Narrative A/P Narrative: * DKA-continue management per guidelines. Clinically resolved with normalization of anion gap and bicarbonate. Wean insulin drip. Start on clear diet. * Nausea Vomiting with acute gastroenteritis. On PPI/supportive management/ crystalloids and bowel rest. Surgery will likely perform upper endoscopy today * Volume depletion resolved with aggressive crystalloids * Hypokalemia/low phosphorus/low magnesium continue IV and oral replacement * Anxiety disorder/panic disorder continue venlafaxine/quetiapine * Narrow complex tachycardia longstanding patient has been on metoprolol/digoxin * Hyperlipidemia on fenofibrate at home * Prophylaxis heparin Plan * Continue DKA management protocol, wean insulin drip * Replace electrolytes * Upper endoscopy likely today * Continue PPI * Pre-existing medical condition management home medications Time Spent With Patient Time: CC time 35 minutes on management of DKA QUALITY VTE Deep Vein Thrombosis/Pulmonary Embolism Present on Admission: No
[2020-02-15] MEDS: MULTIVIT,THER IRON,CA,FA & MIN 1 TABLET PO SCH (11:23)
[2020-02-15] MEDS: HEPARIN 5,000 UNIT/ML VIAL SQ SCH ×2 (11:23→20:43)
--- NOTE | 2020-02-15 11:33 | General Surgery Consult Note ---
HPI Data of Consult Primary Care Provider: Juan F Pinon MD Consult Narrative Chief complaint: abd pain, N and V, diarrhea History of present illness: 44 yo woman HD2 with hx of DMT2 on metformin at home, admitted to ICU for DKA in the contents of very poor po intake and acute illness. Pt was in her usual state of health last week marked by significant anxiety however normal GI function. 4 days ago she developed onset of achy periumbilical pain with episodes of wavelike crampy pain. This is greatest in the central abdomen but radiates to the remainder of the abd. She later developed severe nausea with numerous episodes of vomiting and was unable to keep liquids or food down. Pt has associated diarrhea - This was less severe than other symptoms but new for her. In addition there is quite significant malae with pt feeling fatigue and cognitive clouding. Pt denies similar episodes in the past. She has not had difficulty with chronic nausea. No history of PUD. Pt was initially seen in the ED, two days ago, hydrated and sent home. She returned yesterday where she was found to be in DKA with anion gap of 22. B hydroxybutyrate - 3.9. CT scan of abdomen was without any acute findings. She was admitted to the ICU and started on insulin gtt where her gap closed fairly quickly. However today she continues to feel poor with ongoing nausea and emesis. Pt tested neg with Covid-19 rapid test, She did not have the more sensitive PCR. cc:: CC: Osmar Vences [facility] PFS All Active Problems (Updated 02/15/20 @ 11:54 by Ilya Narayanan MD) Gastritis (Acute) DKA (diabetic ketoacidoses) (Acute) History of removal of cyst (Chronic) History of arthroscopy of knee (Chronic) Delusions (Chronic) Hallucinations (Chronic) Heartburn (Chronic) Hypertension (Chronic) Learning disability (Chronic) Acute viral syndrome (Chronic) Anxiety (Chronic) Nausea & vomiting (Chronic) Dehydration (Chronic) Hemorrhoid (Chronic) Hyperlipidemia (Chronic) Diarrhea (Chronic) Acute dehydration (Chronic) Tachycardia (Chronic) History of hysterectomy (Chronic 07/26/16) History of cholecystectomy (Chronic) Heart trouble (Chronic) Type 2 diabetes mellitus (Chronic) Depression (Chronic) Arthritis (Chronic) Acid reflux (Chronic) Hyperglycemia due to type 2 diabetes mellitus (Chronic) Headache (Chronic) Fatigue (Chronic) Left thyroid nodule (Chronic) History of tachycardia (Chronic) Influenza A (Chronic) Gastroenteritis (Chronic) UTI (urinary tract infection) (Chronic) Bladder infection (Chronic) Tachycardia (Chronic) Chronic insomnia (Chronic) Diabetes mellitus type 2, uncontrolled, without complications (Chronic) Medical History (Updated 02/15/20 @ 11:54 by Ilya Narayanan MD) Acid reflux (Chronic) Arthritis (Chronic) Chronic insomnia (Chronic) Dehydration (Resolved) Delusions (Chronic) Depression (Chronic) Mental Health x1 @ [facility] 1999 Diabetes mellitus type 2, uncontrolled, without complications (Chronic) Diarrhea (Chronic) Gastroenteritis (Resolved) Hallucinations (Chronic) Heart trouble (Chronic) Heartburn (Chronic) Hemorrhoid (Chronic) Hyperlipidemia (Chronic) Hypertension (Chronic) Learning disability (Chronic) PID (acute pelvic inflammatory disease) (Resolved) Tachycardia (Chronic) Type 2 diabetes mellitus (Chronic) UTI (urinary tract infection) (Resolved) Surgical History History of arthroscopy of knee (Chronic) Right History of cholecystectomy (Chronic) History of hysterectomy (Chronic 07/26/16) History of removal of cyst (Chronic) Cyst removed off of right breast Family History Other Alcoholism Social History household members: family housing: apartment marital status: single occupational status: employed and disabled occupation: [employer] smoking status: Former smoker pack-years: 28 smoking status start date: 10/27/86 smoking status stop date: 02/13/15 alcohol intake frequency: does not drink substance use type: marijuana MEDS/ALLERGIES Home Medications and Allergies Home Medications Medication Instructions Recorded Confirmed Type venlafaxine [Effexor XR] 150 mg PO QDAY 09/02/19 02/14/20 History quetiapine 50 mg tablet 50 mg PO HS 09/30/19 02/14/20 History probiotics 1 tab PO DAILY 10/08/19 02/14/20 History cholecalciferol (vitamin D3) 25 See Rx Instructions PO .COMPLEX 11/06/19 02/14/20 History mcg (1,000 unit) tablet metoprolol succinate 25 mg 25 mg PO BID 11/06/19 02/14/20 History tablet,extended release 24 hr pioglitazone 15 mg tablet 30 mg PO QDAY 30 Days #60 tab 12/31/19 02/14/20 Rx digoxin 250 mcg (0.25 mg) tablet 250 mcg PO QDAY #30 tab 01/24/20 02/14/20 Rx ondansetron 4 mg PO Q6H PRN #10 tab 02/13/20 02/14/20 Rx metformin 1,000 mg PO HS 02/14/20 02/14/20 History metformin 500 mg PO DAILY 02/14/20 02/14/20 History omeprazole 20 mg PO QDAY 02/14/20 02/14/20 History Allergies Allergy/AdvReac Type Severity Reaction Status Date / Time morphine AdvReac Mild Nausea Verified 02/15/20 07:55 Physical Examination Vital Signs Vital signs: Temp Pulse Resp BP Pulse Ox 36.9 C 79 10 L 146/93 98 02/15/20 08:01 02/15/20 08:01 02/15/20 08:01 02/15/20 08:01 02/15/20 08:01 General physical appearance General physical exam: other (Ill appering, communicating through a fog of acute illness, answers questions slow and require signifiant direction ) Eyes Eye exam: other (conjunctiva injected) Head Head exam IM: Present atraumatic and normocephalic Cardiovascular Cardiovascular: Regular tachy on monitor Respiratory Respiratory exam: other (frequent caugh, non productive) Abdomen Abdomen: Present soft (minimally distended, dull to perucssion, moderately tender - greatest in periumbilical area, also tender in all 4 quad and epigas trium - less so. No rebound, no reflexive guarding, neg bedshake test) Neurologic Neurologic: Absent disoriented Psychiatric Psychiatric: Present other (anxious affect ) Results Labs Result diagrams: 02/15/20 04:21 02/15/20 04:21 Labs: Abnormal lab results 02/14/20 02/14/20 02/14/20 Range/Units 13:08 13:09 13:09 Hgb 16.1 H (12.0-15.0) g/dL [place] % (Auto) (1.0-12.0) % [place] # (Auto) (0.10-0.90) K/mcL ABG Methemoglobin (0.4-1.5) % VBG Base Excess (-2-3) Carboxyhemoglobin (0.0-1.5) % THgb Total Hemoglobin (13.5-16.5) gm/Dl Potassium (3.3-5.1) mmol/L Carbon Dioxide 21 L (22-30) mmol/L Anion Gap 22.0 H (8.0-16.0) BUN (6-20) mg/dL Creatinine (0.6-1.1) mg/dL Glucose 320 H (70-105) mg/dL Calcium (8.6-10.4) mg/dL Phosphorus (2.5-4.5) mg/dL Magnesium (1.6-2.5) mg/dL Total Protein (5.9-8.4) gm/dL Triglycerides (<150) mg/dL Beta-Hydroxybutyrate 3.90 H (<0.27) mmol/L Ur Specific [place] (1.000-1.035) Urine Protein (Negative) mg/dL Urine Glucose (UA) (Negative) mg/dL Urine Ketones (Negative) mg/dL Ur Squamous Epith Cells (0-4) /hpf Urine Bacteria (0) /hpf Other Casts (None) /lph Urine Mucus (None) /hpf 02/14/20 02/14/20 02/14/20 Range/Units 13:42 18:40 18:40 Hgb (12.0-15.0) g/dL [place] % (Auto) (1.0-12.0) % [place] # (Auto) (0.10-0.90) K/mcL ABG Methemoglobin 0.1 L (0.4-1.5) % VBG Base Excess -4 L (-2-3) Carboxyhemoglobin 5.6 H (0.0-1.5) % THgb Total Hemoglobin 13.4 L (13.5-16.5) gm/Dl Potassium 3.2 L (3.3-5.1) mmol/L Carbon Dioxide 20 L (22-30) mmol/L Anion Gap (8.0-16.0) BUN (6-20) mg/dL Creatinine (0.6-1.1) mg/dL Glucose 220 H (70-105) mg/dL Calcium 7.8 L (8.6-10.4) mg/dL Phosphorus 1.6 L (2.5-4.5) mg/dL Magnesium 1.5 L (1.6-2.5) mg/dL Total Protein (5.9-8.4) gm/dL Triglycerides 209 H (<150) mg/dL Beta-Hydroxybutyrate (<0.27) mmol/L Ur Specific [place] 1.036 H (1.000-1.035) Urine Protein >=500 A (Negative) mg/dL Urine Glucose (UA) >=500 A (Negative) mg/dL Urine Ketones 80 A (Negative) mg/dL Ur Squamous Epith Cells 5 H (0-4) /hpf Urine Bacteria Few A (0) /hpf Other Casts Few A (None) /lph Urine Mucus Mod A (None) /hpf 02/14/20 02/15/20 02/15/20 Range/Units 21:49 04:21 04:21 Hgb (12.0-15.0) g/dL [place] % (Auto) 12.2 H (1.0-12.0) % [place] # (Auto) 0.92 H (0.10-0.90) K/mcL ABG Methemoglobin 0.3 L (0.4-1.5) % VBG Base Excess -3 L (-2-3) Carboxyhemoglobin 3.1 H (0.0-1.5) % THgb Total Hemoglobin 13.0 L (13.5-16.5) gm/Dl Potassium 3.2 L (3.3-5.1) mmol/L Carbon Dioxide (22-30) mmol/L Anion Gap (8.0-16.0) BUN 4 L (6-20) mg/dL Creatinine 0.5 L (0.6-1.1) mg/dL Glucose 219 H (70-105) mg/dL Calcium 7.7 L (8.6-10.4) mg/dL Phosphorus 1.4 L (2.5-4.5) mg/dL Magnesium (1.6-2.5) mg/dL Total Protein 5.6 L (5.9-8.4) gm/dL Triglycerides 185 H (<150) mg/dL Beta-Hydroxybutyrate (<0.27) mmol/L Ur Specific [place] (1.000-1.035) Urine Protein (Negative) mg/dL Urine Glucose (UA) (Negative) mg/dL Urine Ketones (Negative) mg/dL Ur Squamous Epith Cells (0-4) /hpf Urine Bacteria (0) /hpf Other Casts (None) /lph Urine Mucus (None) /hpf Diabetes panel 02/14/20 02/14/20 02/15/20 Range/Units 13:09 18:40 04:21 Sodium 140 137 136 (133-145) mmol/L Potassium 3.6 3.2 L 3.2 L (3.3-5.1) mmol/L Chloride 97 105 102 (96-108) mmol/L Carbon Dioxide 21 L 20 L 22 (22-30) mmol/L BUN 11 8 4 L (6-20) mg/dL Creatinine 0.7 0.6 0.5 L (0.6-1.1) mg/dL Glucose 320 H 220 H 219 H (70-105) mg/dL Calcium 9.3 7.8 L 7.7 L (8.6-10.4) mg/dL AST 19 14 16 (<32) U/L ALT 17 13 8 (<40) U/L Alkaline Phosphatase 103 79 78 (39-117) U/L Total Protein 7.6 6.0 5.6 L (5.9-8.4) gm/dL Albumin 4.4 3.6 3.3 (3.2-5.2) gm/dL Triglycerides 209 H 185 H (<150) mg/dL Calcium panel 02/14/20 02/14/20 02/15/20 Range/Units 13:09 18:40 04:21 Calcium 9.3 7.8 L 7.7 L (8.6-10.4) mg/dL Phosphorus 1.6 L 1.4 L (2.5-4.5) mg/dL Albumin 4.4 3.6 3.3 (3.2-5.2) gm/dL Pituitary panel 02/14/20 02/14/20 02/15/20 Range/Units 13:09 18:40 04:21 Sodium 140 137 136 (133-145) mmol/L Potassium 3.6 3.2 L 3.2 L (3.3-5.1) mmol/L Chloride 97 105 102 (96-108) mmol/L Carbon Dioxide 21 L 20 L 22 (22-30) mmol/L BUN 11 8 4 L (6-20) mg/dL Creatinine 0.7 0.6 0.5 L (0.6-1.1) mg/dL Glucose 320 H 220 H 219 H (70-105) mg/dL Calcium 9.3 7.8 L 7.7 L (8.6-10.4) mg/dL Adrenal panel 02/14/20 02/14/20 02/15/20 Range/Units 13:09 18:40 04:21 Sodium 140 137 136 (133-145) mmol/L Potassium 3.6 3.2 L 3.2 L (3.3-5.1) mmol/L Chloride 97 105 102 (96-108) mmol/L Carbon Dioxide 21 L 20 L 22 (22-30) mmol/L BUN 11 8 4 L (6-20) mg/dL Creatinine 0.7 0.6 0.5 L (0.6-1.1) mg/dL Glucose 320 H 220 H 219 H (70-105) mg/dL Calcium 9.3 7.8 L 7.7 L (8.6-10.4) mg/dL Total Bilirubin 0.6 0.4 0.6 (0.1-1.0) mg/dL AST 19 14 16 (<32) U/L ALT 17 13 8 (<40) U/L Alkaline Phosphatase 103 79 78 (39-117) U/L Total Protein 7.6 6.0 5.6 L (5.9-8.4) gm/dL Albumin 4.4 3.6 3.3 (3.2-5.2) gm/dL All other labs normal. A/P Assessment and plan (1) Nausea & vomiting: Status: Chronic Comment: 44 yo woman HD2 admitted for DKA on insulin gtt with likely gastroenteritis as acute trigger. She has acute nausea, vomiting, crampy abdominal pain and diarrhea. The presence of new respiratory symptoms supports a viral etiology. With the acute onset, short duration, and absence of significant epigastric tenderness compared to much more significant periumbilical tenderness - the likelihood of peptic ulcer disease is low. PLAN: With GI and respiratory symptoms and marked malaise - PCR testing for Covid 19 ordered, isolation until results return Regular URI - ie influenza panel also ordered No plans for endoscopy during acute illness. OK for diet as able to tolerate General Surgery will sign off Ilya Narayanan MD Surgery Qualifiers: Vomiting Intractability: unspecified Vomiting type: unspecified Qualified Code(s): R11.2 - Nausea with vomiting, unspecified Time Spent With Patient Time: Total time spent is greater than 50% in coordination of care (as docum ented) at patient's floor/unit and/or counseling patient:
--- NOTE | 2020-02-15 13:19 | Internal Med Progress Note ---
SUBJECTIVE Subjective Patient information: Note initiated : 02/15/20 at 1:13 pm Service Date, if different from initiated Date: [] Patient: Susanne Jennings a 44 y/o F admitted on 02/14/20 for N/v abd pain. Chief Complaint: [] Interval history: Ms. Jennings is a 44 year old F with a history of DM type II/acid peptic disorder/anxiety and history of marijuana use who lives with her son and boyfriend and presents to the ER the second time with worsening nausea, vomiting, dehydration and inability take anything by mouth over the last 3 days. Patient endorses to frequent vomiting with retching leading to upper abdominal pain. Symptoms exacerbated by attempts to eat. She denies associated fever, dysphagia but endorses to sick contact - son with Covid symptoms. During previous ER visit she was treated on crystalloid/antiemetics and discharged however she continues to experience worsening symptoms. She denies fever, diarrhea but endorses to bloody stool from known hemorrhoids. Endorses taking marijuana and alcohol on a frequent basis. She says that she has been trying to quit smoking marijuana as it causes dyspnea. During today's evaluation work-up was consistent with hyper glycemia/anion gap acidosis/elevated serum ketones consistent with DKA. Patient was started on insulin drip/crystalloids and subsequently hospitalist service was consulted. At the time of my evaluation patient is fairly anxious. She was able to answer most of the question endorse history as above. She endorses to recurrent symptoms of GERD and acid reflux for which she takes PPIs. She has not been evaluated by GI in the past. 1/2-patient clinically improving with DKA management protocol. Currently insulin drip at 1.5 currently being weaned. Anion gap improved, bicarbonate normalized, pH stable, improved volume depletion. Will start on oral diet, transition to oral antidiabetics. Surgery consulted. Patient will undergo upper endoscopy for evaluation of persistent nausea vomiting in the setting of acid peptic disorder. This morning patient feels a lot better. Very happy with care. No overnight fever chills.Potassium 3.2 on replacement, phosphorus 1.4. / Constitutional Vitals: Vital Signs Temp Pulse Resp BP Pulse Ox 98.4 F 79 10 L 146/93 98 02/15/20 08:01 02/15/20 08:01 02/15/20 08:01 02/15/20 08:01 02/15/20 08:01 Period Temp Pulse Resp BP Sys/Flores Pulse Ox Last 24 Hr 97.7 F-99 F 79-115 10-23 128-169/79-122 96-100 Intake and Output 02/14/20 02/15/20 02/15/20 21:59 05:59 13:59 Intake Total 1999 1050 1040 Output Total 1025 650 Balance 1999 25 390 Weight 80.513 kg Intake & Output: Intake & Output 02/14/20 02/15/20 02/15/20 21:59 05:59 13:59 Intake Total 1999 1050 1040 Output Total 1025 650 Balance 1999 25 390 Weight 80.513 kg Intake: IV 1999 1050 1040 Sodium Chloride 0.9% 1,000 ml @ 2000 1000 Wide Open IV [facility] Rx#: [id number] Dextrose 5%-1/2Ns IV Solution 1 1000 ,000 ml @ 75 mls/hr IV .[id number] [facility] Rx#:[id number] HumuLIN R 50 UNIT In Sodium 40 Chloride 0.9% 99.5 ml @ As Directed IV DUR [facility] Rx#: [id number] Output: Void Amount 1025 Urine/Stool Mix 650 Exam: General: Alert, Awake, No acute Distress Eyes/N/T: EOMI, Head/Neck: neck supple, CV: RRR, No murmurs, Pulm: Clear b/l, no wheezing/rhonchi/rales Abd: soft, nontender, +BS x4 Ext: no clubbing/cyanosis/edema Neuro: Alert, no focal deficits, moves all extremities, Skin: warm/dry OBJ DATA Labs CBC & Chem 7: 02/15/20 04:21 02/15/20 04:21 Labs: Abnormal Lab Results 02/15/20 02/15/20 02/14/20 04:21 04:21 21:49 Hgb [place] % (Auto) 12.2 H [place] # (Auto) 0.92 H ABG Methemoglobin 0.3 L VBG Base Excess -3 L Carboxyhemoglobin 3.1 H Total Hemoglobin 13.0 L Potassium 3.2 L Carbon Dioxide Anion Gap BUN 4 L Creatinine 0.5 L Glucose 219 H Calcium 7.7 L Phosphorus 1.4 L Magnesium Total Protein 5.6 L Triglycerides 185 H Beta-Hydroxybutyrate Ur Specific [place] Urine Protein Urine Glucose (UA) Urine Ketones Ur Squamous Epith Cells Urine Bacteria Other Casts Urine Mucus 02/14/20 02/14/20 02/14/20 18:40 18:40 13:42 Hgb [place] % (Auto) [place] # (Auto) ABG Methemoglobin 0.1 L VBG Base Excess -4 L Carboxyhemoglobin 5.6 H Total Hemoglobin 13.4 L Potassium 3.2 L Carbon Dioxide 20 L Anion Gap BUN Creatinine Glucose 220 H Calcium 7.8 L Phosphorus 1.6 L Magnesium 1.5 L Total Protein Triglycerides 209 H Beta-Hydroxybutyrate Ur Specific [place] 1.036 H Urine Protein >=500 A Urine Glucose (UA) >=500 A Urine Ketones 80 A Ur Squamous Epith Cells 5 H Urine Bacteria Few A Other Casts Few A Urine Mucus Mod A 02/14/20 02/14/20 02/14/20 13:09 13:09 13:08 Hgb 16.1 H [place] % (Auto) [place] # (Auto) ABG Methemoglobin VBG Base Excess Carboxyhemoglobin Total Hemoglobin Potassium Carbon Dioxide 21 L Anion Gap 22.0 H BUN Creatinine Glucose 320 H Calcium Phosphorus Magnesium Total Protein Triglycerides Beta-Hydroxybutyrate 3.90 H Ur Specific [place] Urine Protein Urine Glucose (UA) Urine Ketones Ur Squamous Epith Cells Urine Bacteria Other Casts Urine Mucus Meds: Medications Acetaminophen (Tylenol) 650 mg PO Q4-6HP PRN; Protocol PRN Reason: Per Pain Protocol/Fever > 101 Bisacodyl (Dulcolax) 10 mg [place] Q2-3DAYS PRN PRN Reason: Constipation Diagnostic Test (Pha) (Accu-Chek) 1 each FS Q1 [facility] Last Admin: 02/15/20 12:10 Dose: 1 each Documented by: Docusate Sodium (Colace) 100 mg PO BID [facility] Last Admin: 02/15/20 08:31 Dose: Not Given Documented by: Heparin Sodium (Porcine) (Heparin) 5,000 unit SQ Q12 [facility] Last Admin: 02/15/20 11:23 Dose: Not Given Documented by: Dextrose/Sodium Chloride (Dextrose 5%-1/2ns Iv Solution) 1,000 mls @ 75 mls/hr IV .[id number] [facility] Last Admin: 02/15/20 09:10 Dose: 75 mls/hr Documented by: Potassium Chloride 40 meq/ (Dextrose) 520 mls @ 130 mls/hr IV UD PRN PRN Reason: K+ = or < 3.5 Acetaminophen (Ofirmev) 650 mg in 65 mls @ 130 mls/hr IV Q6HP PRN; Protocol PRN Reason: Per Pain Protocol/Fever > 101 Magnesium Sulfate (Magnesium Sulfate) 2 gm in 50 mls @ 50 mls/hr IV UD PRN PRN Reason: MG = or < 1.7 Last Infusion: 02/15/20 04:44 Dose: Infused Documented by: Insulin Human Regular 50 unit/ (Sodium Chloride) 100 mls @ 0 mls/hr IV DUR [facility]; Protocol Last Titration: 02/15/20 11:00 Dose: 3.5 unit/hr, 7 mls/hr Documented by: Iron Carb/Multivit/[place]/Folic Acid (Multivitamin W/Minerals) 1 tab PO DAILY [facility] Last Admin: 02/15/20 11:23 Dose: Not Given Documented by: Lorazepam (Ativan) 0.5 mg IV Q2-4HP PRN PRN Reason: ANXIETY/SEDATION Melatonin (Melatonin 3mg Tablet) 3 mg PO HSP PRN PRN Reason: Insomnia Ondansetron HCl (Zofran Odt) 4 mg SL Q4-6HP PRN; Protocol PRN Reason: Nausea And Vomiting Ondansetron HCl (Zofran) 4 mg IV Q4-6HP PRN; Protocol PRN Reason: Nausea And Vomiting Last Admin: 02/15/20 08:05 Dose: 4 mg Documented by: Pantoprazole S[facility] ([facility]tonix) [facility] Last Admin: 02/15/20 07:09 Dose: 40 mg Documented by: Polyethylene Glycol (Miralax) 17 gm PO DAILYP PRN PRN Reason: Constipation Potassium Chloride (Klor-Con) 40 meq PO DAILYP PRN PRN Reason: K+ < 3.5 Last Admin: 02/15/20 07:21 Dose: 40 meq Documented by: Potassium/Phosphorus/Sodium (Neutra Phos) 2 packet PO DAILY PRN PRN Reason: PHOS <2.5 Senna/Docusate Sodium (Senna Plus Tablet) 1 tab PO [facility] Last Admin: 02/14/20 19:47 Dose: Not Given Documented by: Sodium Chloride (Saline Flush) 10 ml IV Q8 [facility] Last Admin: 02/15/20 04:18 Dose: Not Given Documented by: ABG Interpretation ABG results: 02/14/20 02/14/20 18:40 21:49 ABG Methemoglobin 0.1 L 0.3 L VBG pH 7.42 7.40 VBG pCO2 30.1 35.9 VBG pO2 57.7 61.1 VBG HCO3 19.0 21.6 VBG Total CO2 19.9 22.7 VBG O2 Saturation 85.5 88.0 VBG Base Excess -4 L -3 L A/P Narrative A/P Narrative: A: *DKA: Clinically resolved with normalization of anion gap and bicarbonate. -A1c 8.1 *N/V: acute gastroenteritis. *Volume depletion: resolved with aggressive crystalloids *Hypokalemia/low phosphorus/low magnesium: *Anxiety disorder/panic disorder continue venlafaxine/quetiapine *Narrow complex tachycardia longstanding: patient has been on metoprolol/digoxin *Hyperlipidemia on fenofibrate at home Plan: -Continue DKA management protocol, wean insulin drip, Start on clear diet. -Replace electrolytes -On PPI/supportive management/crystalloids and bowel rest. -Upper endoscopy likely today by Gen Surgeon -continue IV and oral electrolyte replacement -Continue PPI -ppx: Heparin Time Spent With Patient Time: Total time spent is greater than 50% in coordination of care (as documented) at patient's floor/unit and/or counseling patient: QUALITY VTE Deep Vein Thrombosis/Pulmonary Embolism Present on Admission: No
[2020-02-15] MEDS: DIGOXIN 125 MCG TABLET PO SCH (14:03)
[2020-02-15] MEDS ORDERED: DEXTROSE 50% 50 ML VIAL IV PRN (16:08)
[2020-02-15] MEDS ORDERED: DEXTROSE 31 GM ORAL.SUSP PO PRN (16:08)
[2020-02-15] MEDS: INSULIN LISPRO 1 UNIT/0.01 ML UNIT SQ SCH ×2 (16:33→20:44)
[2020-02-15] MEDS ORDERED: INSULIN LISPRO 1 UNIT/0.01 ML UNIT SQ ONE (16:43)
[2020-02-15] MEDS ORDERED: PIOGLITAZONE 15 MG TABLET PO STA (17:20)
[2020-02-15] MEDS ORDERED: METOCLOPRAMIDE 10 MG/2 ML VIAL IV PRN (18:26)
[2020-02-15] MEDS ORDERED: diphenhydrAMINE 50 MG/ML VIAL IV PRN (18:28)
[2020-02-15] MEDS: SENNOSIDES/DOCUSATE SODIUM 1 TAB TABLET PO SCH (20:30)
[2020-02-15] MEDS: METOPROLOL SUCCINATE 25 MG TAB.XL.24H PO SCH (20:43)
[2020-02-15] MEDS ORDERED: QUEtiapine 25 MG TABLET PO SCH (21:00)
[2020-02-16] MEDS: INSULIN LISPRO 1 UNIT/0.01 ML UNIT SQ SCH ×4 (00:45→11:30)
[2020-02-16] MEDS: 0.9 % SODIUM CHLORIDE 10 ML SYRINGE IV SCH ×2 (05:59→15:15)
[2020-02-16 06:41] LABS: ALT/SGPT 16 U/L (<40); AST/SGOT 17 U/L (<32); Albumin 3.6 gm/dL (3.2-5.2); Albumin/Globulin Ratio 1.6 (1.0-2.3); Alkaline Phosphatase 80 U/L (39-117); Bilirubin,Direct < 0.2 mg/dL (<0.3); Bilirubin,Total 0.7 mg/dL (0.1-1.0); Blood Urea Nitrogen 3 mg/dL (6-20); Calcium 8.5 mg/dL (8.6-10.4); Carbon Dioxide 22 mmol/L (22-30); Chloride 102 mmol/L (96-108); Globulin 2.3 gm/dL (2.2-3.7); Glomerular Filtration Rate 116; Glucose 252 mg/dL (70-105); Lactate Dehydrogenase 143 U/L (135-225); Phosphorous 1.3 mg/dL (2.5-4.5); Triglycerides 210 mg/dL (<150); Uric Acid 3.1 mg/dL (2.5-8.0)
[2020-02-16] MEDS: PANTOPRAZOLE 40 MG VIAL IV SCH (07:21)
[2020-02-16] MEDS ORDERED: POTASSIUM PHOSPHATE 40 MEQ in DEXTROSE 5% IN WATER 500 ML IV ONE (07:31)
--- NOTE | 2020-02-16 07:34 | Internal Med Progress Note ---
SUBJECTIVE Subjective Patient information: Note initiated : 02/16/20 at 7:29 am Service Date, if different from initiated Date: [] Patient: Susanne Jennings a 44 y/o F admitted on 02/14/20 for N/v abd pain. Chief Complaint: [] Interval history: Ms. Jennings is a 44 year old F with a history of DM type II/acid peptic disorder/anxiety and history of marijuana use who lives with her son and boyfriend and presents to the ER the second time with worsening nausea, vomiting, dehydration and inability take anything by mouth over the last 3 days. Patient endorses to frequent vomiting with retching leading to upper abdominal pain. Symptoms exacerbated by attempts to eat. She denies associated fever, dysphagia but endorses to sick contact - son with Covid symptoms. During previous ER visit she was treated on crystalloid/antiemetics and discharged however she continues to experience worsening symptoms. She denies fever, diarrhea but endorses to bloody stool from known hemorrhoids. Endorses taking marijuana and alcohol on a frequent basis. She says that she has been trying to quit smoking marijuana as it causes dyspnea. During today's evaluation work-up was consistent with hyper glycemia/anion gap acidosis/elevated serum ketones consistent with DKA. Patient was started on insulin drip/crystalloids and subsequently hospitalist service was consulted. At the time of my evaluation patient is fairly anxious. She was able to answer most of the question endorse history as above. She endorses to recurrent symptoms of GERD and acid reflux for which she takes PPIs. She has not been evaluated by GI in the past. 1/2-patient clinically improving with DKA management protocol. Currently insulin drip at 1.5 currently being weaned. Anion gap improved, bicarbonate normalized, pH stable, improved volume depletion. Will start on oral diet, transition to oral antidiabetics. Surgery consulted. Patient will undergo upper endoscopy for evaluation of persistent nausea vomiting in the setting of acid peptic disorder. This morning patient feels a lot better. Very happy with care. No overnight fever chills.Potassium 3.2 on replacement, phosphorus 1.4. 1/3 Had nausea vomiting yesterday. Started Reglan with improvement. Started home diabetic regimen. Feeling better overall. No new complaints. Review of Systems: denies headache/fever/chills/chest or abdominal pain/cough/dyspnea/diarrhea. Otherwise see above. Constitutional Vitals: Vital Signs Temp Pulse Resp BP Pulse Ox 97.8 F 76 20 119/67 98 02/16/20 04:03 02/16/20 04:03 02/16/20 00:01 02/16/20 00:01 02/16/20 04:03 Period Temp Pulse Resp BP Sys/Flores Pulse Ox Last 24 Hr 97.8 F-98.6 F 74-102 10-24 119-147/67-97 97-100 Intake and Output 02/15/20 02/16/20 02/16/20 21:59 05:59 13:59 Intake Total 543 880 Output Total 900 1750 Balance -357 -870 Weight 79.923 kg Intake & Output: Intake & Output 02/15/20 02/16/20 02/16/20 21:59 05:59 13:59 Intake Total 543 880 Output Total 900 1750 Balance -357 -870 Weight 79.923 kg Intake: IV 543 520 Dextrose 5%-1/2Ns IV Solution 1 536 ,000 ml @ 75 mls/hr IV .[id number] [facility] Rx#:[id number] HumuLIN R 50 UNIT In Sodium 7 Chloride 0.9% 99.5 ml @ As Directed IV DUR [facility] Rx#: [id number] Potassium Chloride 40 Meq In 520 Dextrose 5% in Water 500 ml @ 130 mls/hr IV UD PRN Rx#: [id number] Oral 360 Output: Void Amount 450 1750 Urine/Stool Mix 450 Other: Urine Appearance Clear Clear Urine Color Bright Yellow Pale Urine Odor Normal # Voids 3 # Unmeasured Emesis 1 # Emeses 1 Exam: General: Alert, Awake, No acute Distress Eyes/N/T: EOMI, Head/Neck: neck supple, CV: RRR, No murmurs, Pulm: Clear b/l, no wheezing/rhonchi/rales Abd: soft, nontender, +BS x4 Ext: no clubbing/cyanosis/edema Neuro: Alert, no focal deficits, moves all extremities, Skin: warm/dry OBJ DATA Labs CBC & Chem 7: 02/15/20 04:21 02/16/20 05:32 Labs: Abnormal Lab Results 02/16/20 02/15/20 02/15/20 05:32 04:21 04:21 Hgb [place] % (Auto) 12.2 H [place] # (Auto) 0.92 H ABG Methemoglobin VBG Base Excess Carboxyhemoglobin Total Hemoglobin Potassium 3.0 L 3.2 L Carbon Dioxide Anion Gap BUN 3 L 4 L Creatinine 0.5 L 0.5 L Glucose 252 H 219 H Calcium 8.5 L 7.7 L Phosphorus 1.3 L 1.4 L Magnesium Total Protein 5.6 L Triglycerides 210 H 185 H Beta-Hydroxybutyrate Ur Specific [place] Urine Protein Urine Glucose (UA) Urine Ketones Ur Squamous Epith Cells Urine Bacteria Other Casts Urine Mucus 02/14/20 02/14/20 02/14/20 21:49 18:40 18:40 Hgb [place] % (Auto) [place] # (Auto) ABG Methemoglobin 0.3 L 0.1 L VBG Base Excess -3 L -4 L Carboxyhemoglobin 3.1 H 5.6 H Total Hemoglobin 13.0 L 13.4 L Potassium 3.2 L Carbon Dioxide 20 L Anion Gap BUN Creatinine Glucose 220 H Calcium 7.8 L Phosphorus 1.6 L Magnesium 1.5 L Total Protein Triglycerides 209 H Beta-Hydroxybutyrate Ur Specific [place] Urine Protein Urine Glucose (UA) Urine Ketones Ur Squamous Epith Cells Urine Bacteria Other Casts Urine Mucus 02/14/20 02/14/20 02/14/20 13:42 13:09 13:09 Hgb 16.1 H [place] % (Auto) [place] # (Auto) ABG Methemoglobin VBG Base Excess Carboxyhemoglobin Total Hemoglobin Potassium Carbon Dioxide 21 L Anion Gap 22.0 H BUN Creatinine Glucose 320 H Calcium Phosphorus Magnesium Total Protein Triglycerides Beta-Hydroxybutyrate Ur Specific [place] 1.036 H Urine Protein >=500 A Urine Glucose (UA) >=500 A Urine Ketones 80 A Ur Squamous Epith Cells 5 H Urine Bacteria Few A Other Casts Few A Urine Mucus Mod A 02/14/20 13:08 Hgb [place] % (Auto) [place] # (Auto) ABG Methemoglobin VBG Base Excess Carboxyhemoglobin Total Hemoglobin Potassium Carbon Dioxide Anion Gap BUN Creatinine Glucose Calcium Phosphorus Magnesium Total Protein Triglycerides Beta-Hydroxybutyrate 3.90 H Ur Specific [place] Urine Protein Urine Glucose (UA) Urine Ketones Ur Squamous Epith Cells Urine Bacteria Other Casts Urine Mucus Meds: Medications Acetaminophen (Tylenol) 650 mg PO Q4-6HP PRN; Protocol PRN Reason: Per Pain Protocol/Fever > 101 Bisacodyl (Dulcolax) 10 mg [place] Q2-3DAYS PRN PRN Reason: Constipation Dextrose (Dextrose 50%) 0 ml IV UD PRN PRN Reason: Hypoglycemia Diagnostic Test (Pha) (Accu-Chek) 1 each FS Q4 [facility] Last Admin: 02/16/20 04:32 Dose: 1 each Documented by: Digoxin (Lanoxin) 250 mcg PO DAILY@1400 [facility] Last Admin: 02/15/20 14:03 Dose: 250 mcg Documented by: Diphenhydramine HCl (Benadryl) 25 mg IV Q6HP PRN PRN Reason: Nausea And Vomiting Docusate Sodium (Colace) 100 mg PO BID [facility] Last Admin: 02/15/20 20:30 Dose: Not Given Documented by: Glucose (Insta-Glucose) 15 gm PO PRN PRN PRN Reason: Hypoglycemia Heparin Sodium (Porcine) (Heparin) 5,000 unit SQ Q12 [facility] Last Admin: 02/15/20 20:43 Dose: 5,000 unit Documented by: Dextrose/Sodium Chloride (Dextrose 5%-1/2ns Iv Solution) 1,000 mls @ 75 mls/hr IV .[id number] [facility] Last Admin: 02/15/20 20:29 Dose: Not Given Documented by: Potassium Chloride 40 meq/ (Dextrose) 520 mls @ 130 mls/hr IV UD PRN PRN Reason: K+ = or < 3.5 Last Infusion: 02/15/20 22:32 Dose: Infused Documented by: Acetaminophen (Ofirmev) 650 mg in 65 mls @ 130 mls/hr IV Q6HP PRN; Protocol PRN Reason: Per Pain Protocol/Fever > 101 Magnesium Sulfate (Magnesium Sulfate) 2 gm in 50 mls @ 50 mls/hr IV UD PRN PRN Reason: MG = or < 1.7 Last Infusion: 02/15/20 04:44 Dose: Infused Documented by: Insulin Human Regular 50 unit/ (Sodium Chloride) 100 mls @ 0 mls/hr IV DUR [facility]; Protocol Last Titration: 02/15/20 16:19 Dose: 0 unit/hr, 0 mls/hr Documented by: Insulin Human Lispro (Humalog) 0 unit SQ Q4H [facility]; Protocol Last Admin: 02/16/20 04:34 Dose: Not Given Documented by: Iron Carb/Multivit/[place]/Folic Acid (Multivitamin W/Minerals) 1 tab PO DAILY [facility] Last Admin: 02/15/20 11:23 Dose: Not Given Documented by: Lorazepam (Ativan) 0.5 mg IV Q2-4HP PRN PRN Reason: ANXIETY/SEDATION Last Admin: 02/15/20 16:59 Dose: 0.5 mg Documented by: Melatonin (Melatonin 3mg Tablet) 3 mg PO HSP PRN PRN Reason: Insomnia Metoclopramide HCl (Reglan) 10 mg IV Q6HP PRN PRN Reason: Nausea And Vomiting Last Admin: 02/15/20 19:06 Dose: 10 mg Documented by: Metoprolol Succinate (Toprol Xl) 25 mg PO BID [facility] Last Admin: 02/15/20 20:43 Dose: 25 mg Documented by: Ondansetron HCl (Zofran Odt) 4 mg SL Q4-6HP PRN; Protocol PRN Reason: Nausea And Vomiting Ondansetron HCl (Zofran) 4 mg IV Q4-6HP PRN; Protocol PRN Reason: Nausea And Vomiting Last Admin: 02/15/20 15:44 Dose: 4 mg Documented by: Pantoprazole Sodium (Protonix) 40 mg IV QAMAC [facility] Last Admin: 02/16/20 07:21 Dose: 40 mg Documented by: Pioglitazone HCl (Actos) 30 mg PO QDAY [facility] Polyethylene Glycol (Miralax) 17 gm PO DAILYP PRN PRN Reason: Constipation Potassium Chloride (Klor-Con) 40 meq PO DAILYP PRN PRN Reason: K+ < 3.5 Last Admin: 02/15/20 07:21 Dose: 40 meq Documented by: Potassium/Phosphorus/Sodium (Neutra Phos) 2 packet PO DAILY PRN PRN Reason: PHOS <2.5 Quetiapine Fumarate (Seroquel) 50 mg PO [facility] Last Admin: 02/15/20 20:43 Dose: 50 mg Documented by: Senna/Docusate Sodium (Senna Plus Tablet) 1 tab PO [facility] Last Admin: 02/15/20 20:30 Dose: Not Given Documented by: Sodium Chloride (Saline Flush) 10 ml IV Q8 [facility] Last Admin: 02/16/20 05:59 Dose: 10 ml Documented by: Venlafaxine HCl (Effexor Xr) 150 mg PO DAILY [facility] ABG Interpretation ABG results: 02/14/20 02/14/20 18:40 21:49 ABG Methemoglobin 0.1 L 0.3 L VBG pH 7.42 7.40 VBG pCO2 30.1 35.9 VBG pO2 57.7 61.1 VBG HCO3 19.0 21.6 VBG Total CO2 19.9 22.7 VBG O2 Saturation 85.5 88.0 VBG Base Excess -4 L -3 L A/P Narrative A/P Narrative: A: *DKA: Clinically resolved with normalization of anion gap and bicarbonate. -A1c 8.1 (12/31/2019) *N/V: acute gastroenteritis vs gastroparesis *Volume depletion: resolved with aggressive crystalloids *Hypokalemia/low phosphorus/low magnesium: *Anxiety disorder/panic disorder continue venlafaxine/quetiapine *Narrow complex tachycardia longstanding: patient has been on metoprolol/digoxin *Hyperlipidemia on fenofibrate at home Plan: -weaned insulin drip, Started on diabetic/low fat diet -On PPI/supportive management/crystalloids and bowel rest. -no need for endoscopy at this time per Gen Surgeon -regina, gastroparesis diet -continue IV and oral electrolyte replacement -Continue PPI -ppx: Heparin Time Spent With Patient Time: Total time spent is greater than 50% in coordination of care (as documented) at patient's floor/unit and/or counseling patient: QUALITY VTE Deep Vein Thrombosis/Pulmonary Embolism Present on Admission: No
[2020-02-16] MEDS: METOCLOPRAMIDE 10 MG TABLET PO SCH ×2 (07:52→11:29)
[2020-02-16] MEDS: DOCUSATE SODIUM 100 MG CAPSULE PO SCH (08:21)
[2020-02-16] MEDS: MAGNESIUM SULFATE 2 GM/50 ML BAG IV PRN (08:32)
[2020-02-16] MEDS: HEPARIN 5,000 UNIT/ML VIAL SQ SCH (08:48)
[2020-02-16] MEDS: METOPROLOL SUCCINATE 25 MG TAB.XL.24H PO SCH (08:48)
[2020-02-16] MEDS: MULTIVIT,THER IRON,CA,FA & MIN 1 TABLET PO SCH (08:48)
[2020-02-16] MEDS ORDERED: VENLAFAXINE 150 MG CAP.XL.24H PO SCH (09:00)
[2020-02-16] MEDS ORDERED: PIOGLITAZONE 15 MG TABLET PO SCH (09:00)
--- NOTE | 2020-02-16 09:38 | Discharge Summary ---
Discharge Provider Provider Patient information: Note initiated : 02/16/20 at 9:36 am Service Date, if different from initiated Date: [] Patient: Susanne Jennings 44 y/o F admitted on 02/14/20 for N/v abd pain. Chief Complaint: [] Date of admission: 02/14/20 17:41 Discharge date: 02/16/20 Primary care physician: Juan F Pinon MD Consults: 02/14/20 Consult to Physician [CONS] Stat Comment: Consulting Provider: Osmar Vences Reason For Exam: Physician to Consult Consult to Physician [CONS] Stat Comment: Consulting Provider: Ilya Narayanan Reason For Exam: Physician to Consult Discharge Meds Discharge Medications Home Medications venlafaxine [Effexor XR] 150 mg PO QDAY 09/02/19 [History Confirmed 02/14/20 Last Taken Unknown] quetiapine 50 mg tablet 50 mg PO HS 09/30/19 [History Confirmed 02/14/20 Last Taken Unknown] probiotics 1 tab PO DAILY 10/08/19 [History Confirmed 02/14/20 Last Taken Unknown] cholecalciferol (vitamin D3) 25 mcg (1,000 unit) tablet See Rx Instructions PO .COMPLEX 11/06/19 [History Confirmed 02/14/20 Last Taken 02/10/20] metoprolol succinate 25 mg tablet,extended release 24 hr 25 mg PO BID 11/06/19 [History Confirmed 02/14/20 Last Taken 02/10/20 08:00] pioglitazone 15 mg tablet 30 mg PO QDAY 30 Days #60 tab 12/31/19 [Rx Confirmed 02/14/20 Last Taken 02/10/20] digoxin 250 mcg (0.25 mg) tablet 250 mcg PO QDAY #30 tab 01/24/20 [Rx Confirmed 02/14/20 Last Taken 02/10/20 08:00] ondansetron 4 mg PO Q6H PRN #10 tab 02/13/20 [Rx Confirmed 02/14/20 Last Taken Unknown] metformin 1,000 mg PO HS 02/14/20 [History Confirmed 02/14/20 Last Taken Unknown] metformin 500 mg PO DAILY 02/14/20 [History Confirmed 02/14/20 Last Taken Unknown] omeprazole 20 mg PO QDAY 02/14/20 [History Confirmed 02/14/20 Last Taken Unknown] metoclopramide HCl 5 mg PO TIDAC #3 tab 02/16/20 [Rx Last Taken Unknown] COURSE Hospital Course Hospital course: Ms. Jennings is a 44 year old F with a history of DM type II/acid peptic disorder/anxiety and history of marijuana use who lives with her son and boyfriend and presents to the ER the second time with worsening nausea, vomiting, dehydration and inability take anything by mouth over the last 3 days. Patient endorses to frequent vomiting with retching leading to upper abdominal pain. Symptoms exacerbated by attempts to eat. She denies associated fever, dysphagia but endorses to sick contact - son with Covid symptoms. During previous ER visit she was treated on crystalloid/antiemetics and discharged however she continues to experience worsening symptoms. She denies fever, diarrhea but endorses to bloody stool from known hemorrhoids. Endorses taking marijuana and alcohol on a frequent basis. She says that she has been trying to quit smoking marijuana as it causes dyspnea. During today's evaluation work-up was consistent with hyper glycemia/anion gap acidosis/elevated serum ketones consistent with DKA. Patient was started on insulin drip/crystalloids and subsequently hospitalist service was consulted. At the time of my evaluation patient is fairly anxious. She was able to answer most of the question endorse history as above. She endorses to recurrent symptoms of GERD and acid reflux for which she takes PPIs. She has not been evaluated by GI in the past. 1/2-patient clinically improving with DKA management protocol. Currently insulin drip at 1.5 currently being weaned. Anion gap improved, bicarbonate normalized, pH stable, improved volume depletion. Will start on oral diet, transition to oral antidiabetics. Surgery consulted. Patient will undergo upper endoscopy for evaluation of persistent nausea vomiting in the setting of acid peptic disorder. This morning patient feels a lot better. Very happy with care. No overnight fever chills.Potassium 3.2 on replacement, phosphorus 1.4. 1/3 Had nausea vomiting yesterday. Started Reglan with improvement. Started home diabetic regimen. Feeling better overall. No new complaints. pt doing well. Stable for discharge. A: *DKA: Clinically resolved with normalization of anion gap and bicarbonate. -A1c 8.1 (12/31/2019) *N/V: acute gastroenteritis vs gastroparesis vs marijuana hyperemesis *Volume depletion: resolved with aggressive crystalloids *Hypokalemia/low phosphorus/low magnesium: *Anxiety disorder/panic disorder continue venlafaxine/quetiapine *Narrow complex tachycardia longstanding: patient has been on metoprolol/digoxin *Hyperlipidemia on fenofibrate at home Discharge diagnosis: DKA nausea vomiting volume depletion electrolyte abnormalities Secondary discharge diagnosis: Anxiety hyperlipidemia Time Spent with Patient Time attestation: Total time spent providing and/or coordinating discharge services: Time spent: Greater than 30 minutes EXAM Constitutional Vitals: Temp Pulse Resp BP Pulse Ox 97.8 F 90 20 129/100 100 02/16/20 04:34 02/16/20 04:34 02/16/20 00:01 02/16/20 04:34 02/16/20 04:34 Discharge Data Data Completed and Pending Labs on day of discharge: Labs from last 24 hours 02/16/20 05:32 Sodium 136 Potassium 3.0 L Chloride 102 Carbon Dioxide 22 Anion Gap 12.0 BUN 3 L Creatinine 0.5 L GFR Calculation 116 Glucose 252 H Uric Acid 3.1 Calcium 8.5 L Phosphorus 1.3 L Magnesium 1.6 Total Bilirubin 0.7 Direct Bilirubin < 0.2 GGT 21 AST 17 ALT 16 Alkaline Phosphatase 80 Lactate Dehydrogenase 143 Total Protein 5.9 Albumin 3.6 Globulin 2.3 Albumin/Globulin Ratio 1.6 Triglycerides 210 H Discharge Plan Patient/Caregiver Discharge Instructions Activity: increase activity as tolerated Diet: Low Fat and Consistent Carbohydrate Prescriptions: New metoclopramide HCl 10 mg Tablet 5 mg PO TIDAC Qty: 3 RF: 0 Continued digoxin 250 mcg (0.25 mg) tablet 250 mcg PO QDAY Qty: 30 RF: 2 probiotics 1 tab PO DAILY RF: 0 quetiapine 50 mg tablet 50 mg PO HS RF: 0 cholecalciferol (vitamin D3) 25 mcg (1,000 unit) tablet See Rx Instructions PO .COMPLEX RF: 0 metoprolol succinate 25 mg tablet extended release 24 hr 25 mg PO BID RF: 0 pioglitazone 15 mg tablet 30 mg PO QDAY 30 Days Qty: 60 RF: 2 venlafaxine [Effexor XR] 75 mg Capsule,Extended Release 24hr 150 mg PO QDAY RF: 0 ondansetron 4 mg tablet,disintegrating 4 mg PO Q6H PRN (Reason: nausea and vomiting) Qty: 10 RF: 0 metformin 500 mg tablet extended release 24 hr 500 mg PO DAILY RF: 0 omeprazole 40 mg capsule,delayed release(DR/EC) 20 mg PO QDAY RF: 0 metformin 500 mg tablet extended release 24 hr 1,000 mg PO HS RF: 0 Follow Up Plan Follow up with: Juan F Pinon MD [Primary Care Provider] - Patient Disposition: Home, Self-Care Prognosis: Fair Discharge Orders: Discharge Order (Routine); Ordered 02/16/20 Ordered By: Ubaldo Dave [facility] VTE Deep Vein Thrombosis/Pulmonary Embolism Present on Admission: No
[2020-02-16] MEDS: DEXTROSE 5%-1/2NS 1,000 ML IV SCH (09:54)
--- NOTE | 2020-02-16 09:55 | XRay Report ---
HISTORY: Former smoker, interval change, nausea, vomiting and abdominal pain FINDINGS: The lungs are clear and well expanded. The heart size, pulmonary vessels, mediastinum, alexandre and pleura are normal. There is no free intra-abdominal air. IMPRESSION: Normal chest Interpreted and Authenticated by: Semaj Eason 02/16/20
[2020-02-16] MEDS: DIGOXIN 125 MCG TABLET PO SCH (15:15)
[2020-02-16] MEDS ORDERED: INSULIN REGULAR, HUMAN 50 UNIT in 0.9 % SODIUM CHLORIDE 99.5 ML IV SCH (15:16)
[2020-02-16] MEDS ORDERED: ACETAMINOPHEN 650 MG/65 ML BAG IV PRN (15:16)
[2020-02-16] MEDS ORDERED: POLYETHYLENE GLYCOL 3350 17 GM PACKET PO PRN (15:16)
[2020-02-16] MEDS ORDERED: MAGNESIUM SULFATE 2 GM/50 ML BAG IV PRN (15:16)
[2020-02-16] MEDS ORDERED: POTASSIUM CHLORIDE 40 MEQ in DEXTROSE 5% IN WATER 500 ML IV PRN (15:16)
[2020-02-16] MEDS ORDERED: POTASSIUM CHLORIDE 20 MEQ PACKET PO PRN (15:16)
[2020-02-16] MEDS ORDERED: NEUTRA PHOS 1 PACKET PO PRN (15:16)
[2020-02-16] MEDS ORDERED: ONDANSETRON 4 MG/2 ML VIAL IV PRN (15:16)
[2020-02-16] MEDS ORDERED: diphenhydrAMINE 50 MG/ML VIAL IV PRN (15:16)
[2020-02-16] MEDS ORDERED: MELATONIN 3 MG TABLET PO PRN (15:16)
[2020-02-16] MEDS ORDERED: DEXTROSE 50% 50 ML VIAL IV PRN (15:16)
[2020-02-16] MEDS ORDERED: DEXTROSE 31 GM ORAL.SUSP PO PRN (15:16)
[2020-02-16] MEDS ORDERED: ACETAMINOPHEN 325 MG TABLET PO PRN (15:16)
[2020-02-16] MEDS ORDERED: LORazepam 2 MG/ML VIAL IV PRN (15:16)
[2020-02-16] MEDS ORDERED: METOCLOPRAMIDE 10 MG/2 ML VIAL IV PRN (15:16)
[2020-02-16] MEDS ORDERED: ONDANSETRON 4 MG ODT TABLET SL PRN (15:16)
[2020-02-16] MEDS ORDERED: BISACODYL 10 MG SUPP.RECT PR PRN (15:16)
[2020-02-16] MEDS ORDERED: INSULIN LISPRO 1 UNIT/0.01 ML UNIT SQ SCH (16:15)
[2020-02-16] MEDS ORDERED: METOCLOPRAMIDE 10 MG TABLET PO SCH (17:30)
[2020-02-16] MEDS ORDERED: DOCUSATE SODIUM 100 MG CAPSULE PO SCH (21:00)
[2020-02-16] MEDS ORDERED: HEPARIN 5,000 UNIT/ML VIAL SQ SCH (21:00)
[2020-02-16] MEDS ORDERED: QUEtiapine 25 MG TABLET PO SCH (21:00)
[2020-02-16] MEDS ORDERED: METOPROLOL SUCCINATE 25 MG TAB.XL.24H PO SCH (21:00)
[2020-02-16] MEDS ORDERED: SENNOSIDES/DOCUSATE SODIUM 1 TAB TABLET PO SCH (21:00)
[2020-02-16] MEDS ORDERED: 0.9 % SODIUM CHLORIDE 10 ML SYRINGE IV SCH (22:00)
[2020-02-17] MEDS ORDERED: PANTOPRAZOLE 40 MG VIAL IV SCH (07:30)
[2020-02-17] MEDS ORDERED: MULTIVIT,THER IRON,CA,FA & MIN 1 TABLET PO SCH (09:00)
[2020-02-17] MEDS ORDERED: VENLAFAXINE 150 MG CAP.XL.24H PO SCH (09:00)
[2020-02-17] MEDS ORDERED: PIOGLITAZONE 15 MG TABLET PO SCH (09:00)
[2020-02-17] MEDS ORDERED: DIGOXIN 125 MCG TABLET PO SCH (14:00)
== END 2020-02-16 16:41 | disposition home or self-care (01) | DRG 638 ==
LOC: ED 12:58 → ICU 17:41
PROVIDERS: ADMIT Internal Medicine; ATTEND Internal Medicine